=== PATIENT | male | born 1960 | race Caucasian/White ===

== ENCOUNTER 2016-07-15 19:02 | Inpatient (IN) | payer OTHER ==
[~2016-07-15] VITALS: Ht 185.4 cm; Wt 107.5 kg
[2016-07-15 19:42] LABS: ABSOLUTE BASOPHIL COUNT 0 /CUMM (0.0-0.2); ABSOLUTE EOSINOPHIL COUNT 0 /CUMM (0.0-0.7); ABSOLUTE GRANULOCYTE CT 6.3 /CUMM (1.4-6.5); ABSOLUTE LYMPH COUNT 1.4 /CUMM (1.2-3.4); ABSOLUTE MONOCYTE COUNT 0.9 /CUMM (0.10-0.60); BASOPHIL % 0.3 % (0.0-2.0); EOSINOPHIL % 0.6 % (0-5); GRANULOCYTE % 72.5 % (42.2-75.2); HEMATOCRIT 48.2 % (42-52); MEAN CORPUSCULAR HGB 30.5 PG (27.0-31.0); MEAN CORPUSCULAR HGB CONC 33.9 G/DL (33.0-37.0); MEAN CORPUSCULAR VOLUME 89.8 FL (80.0-94.0); MEAN PLATELET VOLUME 7.1 FL (7.4-10.4); PLATELET COUNT 228 /CUMM (130-400); RBC DISTRIBUTION WIDTH 13.4 % (11.5-14.5); RED BLOOD CELL CT 5.37 /CUMM (4.70-6.10); WHITE BLOOD CELL COUNT 8.7 /CUMM (4.8-10.8)
--- NOTE | 2016-07-15 20:48 | RADIOLOGY REPORT ---
EXAMINATION: XR CHEST CLINICAL INFORMATION: 56-year-old male patient with fever and bodyaches. Right shoulder pain. COMPARISON: None TECHNIQUE: PA and lateral erect views of the chest. FINDINGS: Lung volumes are somewhat diminished. Nevertheless, there is a peripheral area of consolidation in the right lower lobe consistent with a diagnosis of right lower lobe pneumonia. Platelike atelectasis is seen in the lower left hemithorax. Heart is normal in size and the thoracic aorta uncoiled. IMPRESSION: Right lower lobe pneumonia.
--- NOTE | 2016-07-15 20:57 | ED CARDIAC/CP/PALPITATIONS ---
History of Present Illness General Chief Complaint: Abdominal Pain/Flank Pain Stated Complaint: ABD PAIN Source: patient Exam Limitations: no limitations Vital Signs & Intake/Output Vital Signs & Intake/Output Vital Signs Date Time Temp Pulse Resp B/P Pulse O2 O2 Flow FiO2 Ox Delivery Rate 07/15 2158 100.7 110 18 134/79 95 Room Air 07/15 1918 101.2 99 22 168/91 97 Room Air Allergies Coded Allergies: No Known Allergies (07/15/16) Triage Note: PER PT PAIN TO RT RIB AREA RADIATES TO RT SHOULDER SINCE LAST NIGHT ALSO CHILLS, HURTS TO BREATHE IN TEMP IN TRIAGE 101.2 Triage Nurses Notes Reviewed? yes Onset: Abrupt Duration: day(s): (few), constant, continues in ED Timing: recent history Radiation: back Activities at Onset: none HPI: 56-year-old male comes into emergency room for further evaluation of severe right sided rib pain. Denies any cough. Low-grade fever starting today. Denies any vomiting. Pain is worse with any type of deep breath and worse with lying flat. Denies any history or prior symptoms of this. Denies any other associated symptoms. (CHATO SAUL) Past History Travel History Traveled to [place] past 21 day No Medical History Any Pertinent Medical History? see below for history Neurological: NONE EENT: NONE Cardiovascular: NONE Respiratory: NONE Gastrointestinal: NONE Hepatic: NONE Renal: NONE Musculoskeletal: NONE Psychiatric: NONE Endocrine: NONE Surgical History Surgical History: non-contributory Psychosocial History What is your primary language Greek Tobacco Use: Never used Family History Hx Contributory? No (CHATO SAUL) Review of Systems Review of Systems Constitutional: Reports: see HPI. EENTM: Reports: no symptoms. Respiratory: Reports: see HPI. Cardiovascular: Reports: see HPI. GI: Reports: no symptoms. Genitourinary: Reports: no symptoms. Musculoskeletal: Reports: no symptoms. Skin: Reports: no symptoms. Neurological/Psychological: Reports: no symptoms. Hematologic/Endocrine: Reports: no symptoms. Immunologic/Allergic: Reports: no symptoms. All Other Systems: Reviewed and Negative (CHATO SAUL) Physical Exam Physical Exam General Appearance: well developed/nourished, no apparent distress, alert, awake Head: atraumatic, normal appearance Eyes: Bilateral: normal appearance, EOMI. Ears, Nose, Throat: normal pharynx, normal ENT inspection Neck: normal inspection Respiratory: normal breath sounds, no respiratory distress Cardiovascular: regular rate/rhythm Gastrointestinal: soft Back: normal inspection Extremities: normal inspection, normal range of motion Neurologic/Psych: awake, alert, oriented x 3, normal gait Skin: intact, normal color Core Measures ACS in differential dx? No Severe Sepsis Present: No Septic Shock Present: No (CHATO SAUL) Progress Differential Diagnosis: AMI, aortic dissection, cholecystitis, myocarditis, pancreatitis, pericarditis, pneumonia, pneumothorax, respiratory failure, rib fracture, unstable angina, pulmonary infarct Plan of Care: Orders Procedure Date/time Status Admit to inpatient 07/151 Active PARTIAL THROMBOPLASTIN TIME 07/15 2218 Complete Patient Data 07/15 2217 Active Add-on Test (ER Only) 07/15 2055 Active EKG 07/15 2055 Active RAPID VIRAL INFLUENZA A 07/15 2026 Complete TROPONIN LEVEL 07/15 1924 Complete BLOOD CULTURE 07/15 1920 Active LIPASE 07/15 1920 Complete LACTIC ACID 07/15 1920 Complete COMPREHENSIVE METABOLIC PANEL 07/15 1920 Complete CBC WITHOUT DIFFERENTIAL 07/15 1920 Complete AMYLASE 07/15 1920 Complete Laboratory Tests 07/15/16 2236: APTT 30 07/15/16 2221: Lactic Acid Cancelled 07/15/161924: Anion Gap 9, Estimated GFR > 60, BUN/Creatinine Ratio 14.0, Glucose 104 H, Lactic Acid 1.3, Calcium 9.1, Total Bilirubin 0.8, AST 25, ALT 39, Alkaline Phosphatase 63, Troponin I < 0.01, Total Protein 7.4, Albumin 4.2, Globulin 3.2, Albumin/Globulin Ratio 1.3, Amylase 155 H, Lipase 80, CBC w Diff NO MAN DIFF REQ, RBC 5.37, MCV 89.8, MCH 30.5, RDW 13.4, MPV 7.1 L, Gran % 72.5, Lymphocytes % 16.0 L, Monocytes % 10.6 H, Eosinophils % 0.6, Basophils % 0.3, Absolute Granulocytes 6.3, Absolute Lymphocytes 1.4, Absolute Monocytes 0.9 H, Absolute Eosinophils 0, Absolute Basophils 0, PUBS MCHC 33.9 Microbiology 07/15 2150 NASOPHARYN: Influenza Virus A & B Rapid Smear - COMP 07/15 1924 BLOOD: Blood Culture - RECD Diagnostic Imaging: Viewed by Me: Radiology Read, CT Scan. Discussed w/RAD: Radiology Read, CT Scan. Radiology Impression: SERVICE DATE: 07/15/16 EXAM TYPE: RAD - XRY-CHEST XRAY, PA AND LATERAL EXAMINATION: XR CHEST CLINICAL INFORMATION: 56-year-old male patient with fever and bodyaches. Right shoulder pain. COMPARISON: None TECHNIQUE: PA and lateral erect views of the chest. FINDINGS: Lung volumes are somewhat diminished. Nevertheless, there is a peripheral area of consolidation in the right lower lobe consistent with a diagnosis of right lower lobe pneumonia. Platelike atelectasis is seen in the lower left hemithorax. Heart is normal in size and the thoracic aorta uncoiled. IMPRESSION: Right lower lobe pneumonia. DICTATED BY: PIETER WHITMAN MD DATE/TIME DICTATED:07/15/16 , EXAM TYPE: CAT - CTA CHEST-PULMONARY EMBOLISM EXAMINATION: CT ANGIOGRAM OF THE CHEST WITH AND WITHOUT CONTRAST (CT PULMONARY ANGIOGRAM FOR PE) CLINICAL INFORMATION: Reason for Study:
Presumptive Dx: SEVERE RIGHT SIDED RIB PAIN, R /O PULM EMB/INFARCT
Signs Symptoms: PAIN OUT OF PROPORTION ON EXAM
COMPARISON: None TECHNIQUE: Prior to contrast administration, noncontrast localization images were obtained. Subsequently, multidetector volumetric imaging was performed from the thoracic inlet to below the diaphragms following the administration of 101 mL Optiray 350 intravenous contrast. No contrast reaction reported Sagittal, coronal, and MIP oblique sagittal reformatted images were obtained on the CT workstation, uploaded to PACS, and reviewed. Total exam dose-length product 610 mGy-cm FINDINGS: QUALITY OF STUDY/CONTRAST BOLUS: Unsatisfactory. PULMONARY ARTERIES: The timing bolus was somehow misconstrued and the study is performed in the levo phase of injection. Nevertheless, the main pulmonary artery and left and right branches do not have intraluminal thrombus formation. However, there is clot formation in all the segmental branches of both lungs. The clot burden therefore is high. THORACIC AORTA: No aneurysm or dissection. LUNG: The focal consolidation on the chest x-ray done this evening would be consistent with a Cespedes's hump or pulmonary infarction. On the present study there is parenchymal opacity in the right lower lobe that is either atelectasis or an infarction of the lung. The patient's pain is localized specifically to this area. There is some dependent atelectasis in the left lower lobe. PLEURA: No pleural effusion or pneumothorax. MEDIASTINUM: Normal heart size. No pericardial effusion. No hilar or mediastinal lymphadenopathy. No evidence of septal bowing or right heart strain. CHEST WALL /AXILLA: No axillary or internal mammary lymphadenopathy. OSSEOUS STRUCTURES: No acute or suspicious osseous abnormality. UPPER ABDOMEN: Unremarkable. No reflux of contrast into the hepatic veins to suggest elevated right heart pressures. IMPRESSION: 1. Multiple segmental pulmonary emboli, all segments of both lungs. High clot burden. 2. Developing pulmonary infarct posterior peripheral right lower lobe versus atelectasis. VTE: Positive. This critical result was discussed with Dr. Chato Bain at 10:00 PM on July 15 and it was ascertained that the content and urgency of the report was understood at the time of direct communication. DICTATED BY: PIETRE WHITMAN MD Initial ED EKG: normal intervals, normal p-waves, normal sinus rhythm, rate (103 ), S1 Q3 T3 (CHATO SAUL) Departure Departure Disposition: STILL A PATIENT Condition: Stable Clinical Impression Primary Impression: Multiple pulmonary emboli Secondary Impressions: Pulmonary infarct Referrals: EDWIN BALLARD MD (PCP/Family) Departure Forms: Customer Survey General Discharge Information Admission Note Spoke With: NADINE STROUD MD Documentation of Exam: Documentation of any treatments & extenuating circumstances including Concerns Regarding Discharge (functional status, medication knowledge or non-compliance, living conditions, etc.) that warrant an admission rather than observation: Patient will require IV heparin. Critical care. High risk. Patient would do poorly as an outpatient. Pulmonary consultation. (CHATO SAUL) PA/PREVENTIVE MAINTENANCE COORDINATOR Co-Sign Statement Statement: ED Attending supervision documentation- x I saw and evaluated the patient. I have also reviewed all the pertinent lab results and diagnostic results. I agree with the findings and the plan of care as documented in the PA's/PREVENTIVE MAINTENANCE COORDINATOR's documentation. [] I have reviewed the ED Record and agree with the PA's/PREVENTIVE MAINTENANCE COORDINATOR's documentation. [] Additions or exceptions (if any) to the PAs/PREVENTIVE MAINTENANCE COORDINATOR's note and plan are summarized below: [] (JJ RODGERS,SUGAR) Critical Care Note Critical Care Note Critical Care Time: 30-74 min (45) (EMMANUEL OLIVARES,CHATO)
--- NOTE | 2016-07-15 22:19 | CT SCAN REPORT ---
EXAMINATION: CT ANGIOGRAM OF THE CHEST WITH AND WITHOUT CONTRAST (CT PULMONARY ANGIOGRAM FOR PE) CLINICAL INFORMATION: Reason for Study:
Presumptive Dx: SEVERE RIGHT SIDED RIB PAIN, R/O PULM EMB/INFARCT
Signs Symptoms: PAIN OUT OF PROPORTION ON EXAM
COMPARISON: None TECHNIQUE: Prior to contrast administration, noncontrast localization images were obtained. Subsequently, multidetector volumetric imaging was performed from the thoracic inlet to below the diaphragms following the administration of 101 mL Optiray 350 intravenous contrast. No contrast reaction reported Sagittal, coronal, and MIP oblique sagittal reformatted images were obtained on the CT workstation, uploaded to PACS, and reviewed. Total exam dose-length product 610 mGy-cm FINDINGS: QUALITY OF STUDY/CONTRAST BOLUS: Unsatisfactory. PULMONARY ARTERIES: The timing bolus was somehow misconstrued and the study is performed in the levo phase of injection. Nevertheless, the main pulmonary artery and left and right branches do not have intraluminal thrombus formation. However, there is clot formation in all the segmental branches of both lungs. The clot burden therefore is high. THORACIC AORTA: No aneurysm or dissection. LUNG: The focal consolidation on the chest x-ray done this evening would be consistent with a Cespedes's hump or pulmonary infarction. On the present study there is parenchymal opacity in the right lower lobe that is either atelectasis or an infarction of the lung. The patient's pain is localized specifically to this area. There is some dependent atelectasis in the left lower lobe. PLEURA: No pleural effusion or pneumothorax. MEDIASTINUM: Normal heart size. No pericardial effusion. No hilar or mediastinal lymphadenopathy. No evidence of septal bowing or right heart strain. CHEST WALL/AXILLA: No axillary or internal mammary lymphadenopathy. OSSEOUS STRUCTURES: No acute or suspicious osseous abnormality. UPPER ABDOMEN: Unremarkable. No reflux of contrast into the hepatic veins to suggest elevated right heart pressures. IMPRESSION: 1. Multiple segmental pulmonary emboli, all segments of both lungs. High clot burden. 2. Developing pulmonary infarct posterior peripheral right lower lobe versus atelectasis. VTE: Positive. This critical result was discussed with Dr. Shaun Bain at 10:00 PM on July 15 and it was ascertained that the content and urgency of the report was understood at the time of direct communication.
[2016-07-15 22:50] LABS: PTT 30 SEC (25-37)
[2016-07-15] MEDS ORDERED: ASPIRIN81 M4 PO (23:39)
--- NOTE | 2016-07-15 23:40 | History & Physical ---
RIC LOPEZ 07/15/16 2333: General Information and HPI MD Statement: I have seen and personally examined ZELDA CERVANTES and documented this H&P. The patient is a 56 year old M who presented with a patient stated chief complaint of [chest pain]. Source of Information: patient Exam Limitations: no limitations History of Present Illness: This is 56 year old male with no known past medical history. Presented to the emergency department with a chief complaint of chest pain associated with difficulty breathing. Patient stated that his chest pain started last night, suddenly, on the right side, below the rib cage, sharp in nature, increased with deep breathing and movement, radiating to his right shoulder, slightly improved with sitting up, associated with chills, nausea and difficulty breathing. Patient reports decreased appetite. Patient deny any lower extremity swelling, recent long distance travel. Patient reports headache and palpitation that subside. Patient reports weak stream. 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 Patient deny any cough, hemoptysis, hematemesis, abdominal pain, vomiting, diarrhea, change in vision or hearing, dizziness, lightheaded, sweating hematuria, dysuria,. Patient stated that he went recently for colonoscopy that was within normal. In the emergency department: Chest-CAT showed multiple segmental pulmonary embolism with a hyperdense with possible right lower lobe infarct versus atelectasis. Patient has a fever of 101.2, amylase of 155. He was started on IV heparin drip. Allergies/Medications Allergies: Coded Allergies: No Known Allergies (07/15/16) Home Med list Aspirin (Aspirin*) 81 MG TAB.CHEW 1 TAB PO EVER OTHER DAY HEART (Reported) Past History Travel History Traveled to [place] past 21 day No Medical History Neurological: NONE Cardiovascular: NONE Respiratory: NONE Gastrointestinal: NONE Hepatic: NONE Renal: NONE Musculoskeletal: disk herniation Psychiatric: NONE Endocrine: NONE Surgical History Surgical History: VARICOSE VEIN INJECTION Past Family/Social History Family History Relations & Conditions if any BROTHER (DM, HTN, CLOT). FATHER (mULTIPLE HEART ATTACK, FIRST ONE AROUND 40-YEAR-OLD). . MOTHER (cOLON CANCER, BREAST CANCER). . Psychosocial History Smoking Status: Never Smoked ETOH Use: denies use Illicit Drug Use: denies illicit drug use Functional Ability ADLs Independent: dressing, eating, toileting, bathing. Ambulation: independent IADLs Independent: shopping, housework, finances, food prep, telephone, transportation , medication admin. Employment History Employment Employed Review of Systems Review of Systems Constitutional: Reports: see HPI. EENTM: Reports: see HPI. Cardiovascular: Reports: see HPI. Respiratory: Reports: see HPI. GI: Reports: see HPI. Genitourinary: Reports: see HPI. Exam & Diagnostic Data Last 24 Hrs of Vital Signs/I&O Vital Signs Date Time Temp Pulse Resp B/P Pulse O2 O2 Flow FiO2 Ox Delivery Rate 07/15 2158 100.7 110 18 134/79 95 Room Air 07/15 1918 101.2 99 22 168/91 97 Room Air Physical Exam General Appearance Alert, Oriented X3, Cooperative, Mild Distress HEENT PERRLA, EOMI Neck Supple Cardiovascular Normal S1, Normal S2, TACHYCARDIA Lungs Normal Air Movement, DECREASE AIR ENTRY ON THE RIGHT SIDE Abdomen Normal Bowel Sounds, Soft, No Tenderness Extremities No Cyanosis, Normal Pulses, TRACE BILATERAL EDEMA Last 24 Hrs of Labs/Alejo: Laboratory Tests 07/15/162235: PT Pending, INR Pending, APTT 30 07/15/16 222: Lactic Acid Cancelled 07/15/161924: Anion Gap 9, Estimated GFR > 60, BUN/Creatinine Ratio 14.0, Glucose 104 H, Lactic Acid 1.3, Calcium 9.1, Phosphorus Pending, Magnesium Pending, Total Bilirubin 0.8, AST 25, ALT 39, Alkaline Phosphatase 63, Troponin I < 0.01, Total Protein 7.4, Albumin 4.2, Globulin 3.2, Albumin/Globulin Ratio 1.3, Amylase 155 H, Lipase 80, CBC w Diff NO MAN DIFF REQ, RBC 5.37, MCV 89.8, MCH 30.5, RDW 13.4 , MPV 7.1 L, Gran % 72.5, Lymphocytes % 16.0 L, Monocytes % 10.6 H, Eosinophils % 0.6, Basophils % 0.3, Absolute Granulocytes 6.3, Absolute Lymphocytes 1.4, Absolute Monocytes 0.9 H, Absolute Eosinophils 0, Absolute Basophils 0, PUBS MCHC 33.9 Microbiology 07/15 2150 NASOPHARYN: Influenza Virus A & B Rapid Smear - COMP 07/15 1924 BLOOD: Blood Culture - RECD Diagnostic Data EKG Results Tachycardia, Q waves in lead 3 with T-wave inversion. Other Results EXAMINATION: CT ANGIOGRAM OF THE CHEST WITH AND WITHOUT CONTRAST (CT PULMONARY ANGIOGRAM FOR PE) CLINICAL INFORMATION: Reason for Study:
Presumptive Dx: SEVERE RIGHT SIDED RIB PAIN, R/O PULM EMB/INFARCT
Signs Symptoms: PAIN OUT OF PROPORTION ON EXAM
COMPARISON: None TECHNIQUE: Prior to contrast administration, noncontrast localization images were obtained. Subsequently, multidetector volumetric imaging was performed from the thoracic inlet to below the diaphragms following the administration of 101 mL Optiray 350 intravenous contrast. No contrast reaction reported Sagittal, coronal, and MIP oblique sagittal reformatted images were obtained on the CT workstation, uploaded to PACS, and reviewed. Total exam dose-length product 610 mGy-cm FINDINGS: QUALITY OF STUDY/CONTRAST BOLUS: Unsatisfactory. PULMONARY ARTERIES: The timing bolus was somehow misconstrued and the study is performed in the levo phase of injection. Nevertheless, the main pulmonary artery and left and right branches do not have intraluminal thrombus formation. However, there is clot formation in all the segmental branches of both lungs. The clot burden therefore is high. THORACIC AORTA: No aneurysm or dissection. LUNG: The focal consolidation on the chest x-ray done this evening would be consistent with a Cespedes's hump or pulmonary infarction. On the present study there is parenchymal opacity in the right lower lobe that is either atelectasis or an infarction of the lung. The patient's pain is localized specifically to this area. There is some dependent atelectasis in the left lower lobe. PLEURA: No pleural effusion or pneumothorax. MEDIASTINUM: Normal heart size. No pericardial effusion. No hilar or mediastinal lymphadenopathy. No evidence of septal bowing or right heart strain. CHEST WALL/AXILLA: No axillary or internal mammary lymphadenopathy. OSSEOUS STRUCTURES: No acute or suspicious osseous abnormality. UPPER ABDOMEN: Unremarkable. No reflux of contrast into the hepatic veins to suggest elevated right heart pressures. IMPRESSION: 1. Multiple segmental pulmonary emboli, all segments of both lungs. High clot burden. 2. Developing pulmonary infarct posterior peripheral right lower lobe versus atelectasis. VTE: Positive. Assessment/Plan Assessment: This is 56 year old male with no known past medical history. Presented to the emergency department with a chief complaint of chest pain associated with difficulty breathing. Problem list: -Provoked versus unprovoked pulmonary embolism with high burden -Possible right lower lobe infarct versus atelectasis. -Tachycardia, fever secondary to the pulmonary embolism Plan: -Admit patient to the ICU -Vitals every shift, strict LIS's -Keep oxygen saturation more than 92%, TRC -Serial troponin and EKG to R/O ACS. -Continue heparin drip, D5 half-normal saline at 75 mL per hour -Check PT/PTT, magnesium, phosphorus -Echocardiogram to assess cardiac function. -Hematology oncology consultation in A.M. -Clear liquid diet. -Patient will need extensive workup for hypercoagulability as an outpatient. -If the patient become unstable we'll consider thrombolytic. -Pain pathway -DVT prophylaxis: Heparin drip -Patient agree for central line if needed. -Full code As Ranked By This Provider Problem List: 1. Multiple pulmonary emboli 2. Pulmonary infarct Core Measures/Miscellaneous Acute Coronary Syndrome ACS Diagnosis: No Cerebrovascular Accident CVA/TIA Diagnosis: No Congestive Heart Failure CHF Diagnosis: No Venous Thromboembolism VTE Risk Factors: Acute medical illness, Age > 40, Obesity VTE Prophylaxis Ordered Inpt: Mech & Pharm No Mech VTE prophylaxis d/t: No contraindications No VTE Pharm Prophylaxis d/t: No contraindications VTE Diagnosis: Yes VTE Type: Pulmonary Embolism VTE Confirmed by (Test): CT CHEST ANGIOGRAM Severe Sepsis Severe Sepsis Present: No Septic Shock Septic Shock Present: No Miscellaneous Documentation Attending Case Discussed With: NADINE STROUD MD Primary Care Physician: EDWIN BALLARD MD Patient sees these Specialists Hematology Switch Operators Supervisor Level of Patient Care: Critical Care (CRI) NADINE STROUD 07/16/16 0311: Attending MD Review Statement Attending Statement Attending MD Statement: examined this patient, discuss w/resident/PA/SAFETY RISK LEAD, agreed w/resident/PA/SAFETY RISK LEAD, reviewed EMR data (avail), reviewed images, amended to note Attending Assessment/Plan: CC: Right-sided chest pain PMH: Varicose vein with recent procedure He came to ER with a chief complaint of chest pain and difficulty breathing. Chest pain started last night, sudden in onset, sharp, on the right side, worse with breathing, going to his right shoulder, associated with chills, nausea. He denies any lower extremity swelling, recent long distance travel, weight loss, night sweats, cough, hemoptysis, hematemesis, abdominal pain, vomiting, LOC, dizziness. 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 Vitals: T max 101.2, tachycardic, mildly tachypnea, blood pressure 134/79, saturating 95% on room air. On examination moderately built, a O 3, anxious, no apparent distress, neck supple, no JVD, mucosa moist CVS: S1-S2, RRR. RS: Limited inspiratory effort secondary to pain, no adventitious sounds. Abdomen: Obese, nontender, bowel sounds present. No focal neurological deficits. Left lower extremity is larger in dimension as compared to right lower extremity, trace pitting edema, no obvious skin rashes no calf tenderness. Labs: CBC, BMP, LFT unremarkable, lactate 1.3 EKG: Q wave in II and III CXR: Right lower lobe pneumonia CTA chest: Multiple segmental pulmonary emboli, all segments of both lungs. High clot burden. Developing pulmonary infarct posterior peripheral right lower lobe versus atelectasis. A and P #1 bilateral pulmonary embolism: with high clot burden and developing right pulmonary infarct bilateral. Patient hemodynamically stable but has Q waves in lead II and III, suspect right heart strain as well, overnight monitoring in ICU for hemodynamic stability, continue IV heparin, check troponin, serial EKG. 2-D echo in a.m. for right heart strain. 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 Discussed risk and benefits of anticoagulation and told him about extensive clot burden may result in hemodynamic instability and also about oral anticoagulation but did not reach any conclusion so far. Pulm/ critical care consult in am. # 2 fever spike secondary to PE #3 adequate pain control
[2016-07-16 00:13] LABS: PT 12.7 SEC (9.4-12.5)
[2016-07-16 01:59] VITALS: BP 133/79
--- NOTE | 2016-07-16 03:14 | Admission Certification ---
Admission Certification Certification Statement - As attending physician, I certify that at the time of - admission, based on clinical presentation, severity of - symptoms, need for further diagnostic testing and - therapeutic interventions, and risk of adverse outcomes - without in-hospital treatment, in my clinical assessment, - this patient requires an acute hospital stay for a minimum - of two nights or longer. I have also considered psychsocial - factors such as support system, advanced age, financial - issues, cognitive issues, and failed out-patient treatments, - past re-admission history, safety of patient, and lack of - compliance as applicable. Specific rationale supporting this admission is: pulmonary embolism
[2016-07-16 05:28] LABS: ABSOLUTE BASOPHIL COUNT 0 /CUMM (0.0-0.2); ABSOLUTE EOSINOPHIL COUNT 0 /CUMM (0.0-0.7); ABSOLUTE GRANULOCYTE CT 8.1 /CUMM (1.4-6.5); ABSOLUTE LYMPH COUNT 1.5 /CUMM (1.2-3.4); ABSOLUTE MONOCYTE COUNT 1.3 /CUMM (0.10-0.60); BASOPHIL % 0.3 % (0.0-2.0); EOSINOPHIL % 0.1 % (0-5); GRANULOCYTE % 73.8 % (42.2-75.2); HEMATOCRIT 44.3 % (42-52); MEAN CORPUSCULAR HGB 30.8 PG (27.0-31.0); MEAN CORPUSCULAR HGB CONC 34.4 G/DL (33.0-37.0); MEAN CORPUSCULAR VOLUME 89.6 FL (80.0-94.0); MEAN PLATELET VOLUME 7.6 FL (7.4-10.4); PLATELET COUNT 205 /CUMM (130-400); RBC DISTRIBUTION WIDTH 13.4 % (11.5-14.5); RED BLOOD CELL CT 4.94 /CUMM (4.70-6.10); WHITE BLOOD CELL COUNT 10.9 /CUMM (4.8-10.8)
[2016-07-16 05:29] LABS: PTT 53 SEC (25-37)
--- NOTE | 2016-07-16 07:17 | Cons- CRCU ---
ALEX RODGERS,[facility] [place] 07/16/16 0717: General Information and HPI Consulting Request Date of Consult: 07/16/16 Requested By: Mateusz Gandhi MD Reason for Consult: Multiple pulmonary emboli Source of Information: patient, old records Exam Limitations: no limitations History of Present Illness: 56 y/o M with PMHx of varicose veins who presents with sudden onset of progressively worsening right-sided chest pain x 2 days. Pain is associated with palpitations and shortness of breath. 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 He denies leg swelling, recent immobilization or long distance travel. Of note he had varicose vein surgery in May 2016, about one month prior to current presentation. He has a family history of thrombosis in his brother. Last night patient presented to the ED with the chest pain. On initial presentation, he was febrile to 101.2, tachycardic and tachypneic. His oxygen saturation was >95% on room air. On exam, his left leg was noted to be larger compared to his right leg. CBC, BMP and LFTs were unremarkable. EKG showed Q waves in leads II and III. CTA Chest was performed due to concern for PE and revealed multiple segmental pulmonary emboli involving bilateral lungs with possible pulmonary infarct. He was started on heparin IV drip and admitted to the ICU for close hemodynamic monitoring. Allergies/Medications Allergies: Coded Allergies: No Known Allergies (07/15/16) Home Med List: Aspirin (Aspirin*) 81 MG TAB.CHEW 1 TAB PO EVER OTHER DAY HEART (Reported) Current Medications: Current Medications Sig/Julianna Start time Last Medication Dose Route Stop Time Status Admin Acetaminophen 650 MG Q6P PRN 07/15 2330 AC PO Dextrose/Sodium 1,000 ML .Q10H 07/15 2330 AC 07/16 Chloride IV 0006 Heparin Sodium 0 .STK-MED ONE 07/15 2242 DC (Porcine) .ROUTE Heparin Sodium 5,000 UNIT ONCE ONE 07/15 2214 DC 07/15 (Porcine) IV 07/15 2215 224 Heparin Sodium 25,000 UNIT Q24H 07/15 2214 AC 07/15 (Porcine) IV 224 Sodium Chloride 500 ML Hydromorphone HCl 2 MG .STK-MED ONE 07/16 0111 DC IM 07/16 0112 Hydromorphone HCl 0.4 MG Q4P PRN 07/15 2330 AC 07/16 IV 0519 Hydromorphone HCl 0 .STK-MED ONE 07/15 2117 DC .ROUTE Hydromorphone HCl 1 MG ONCE ONE 07/15 2100 DC 07/15 IV 07/15 2101 2121 Magnesium Oxide 400 MG ONE ONE 07/16 0730 DC 07/16 PO 07/16 0731 0815 Oxycodone/ 2 TAB Q6P PRN 07/15 2330 AC Acetaminophen PO Potassium Chloride 10 MEQ ONCE ONE 07/16 0730 DC 07/16 PO 07/16 0731 0816 Review of Systems Review of Systems Constitutional: Reports: fever. Denies: unexplained weight loss. EENTM: Reports: no symptoms. Cardiovascular: Reports: chest pain. Respiratory: Denies: cough, hemoptysis, short of breath. GI: Denies: abdominal pain, diarrhea, vomiting. Genitourinary: Reports: no symptoms. Musculoskeletal: Reports: no symptoms. Skin: Reports: no symptoms. Neurological/Psychological: Reports: no symptoms. Hematologic/Endocrine: Reports: no symptoms. Immunologic/Allergic: Reports: no symptoms. All Other Systems: Reviewed and Negative Past History Travel History Traveled to [place] past 21 day No Medical History Neurological: NONE Cardiovascular: varicose veins Respiratory: NONE Gastrointestinal: NONE Hepatic: NONE Renal: NONE Musculoskeletal: disk herniation Psychiatric: NONE Endocrine: NONE Surgical History Surgical History: VARICOSE VEIN INJECTION Family History Relations & Conditions If Any: BROTHER (DM, HTN, CLOT). FATHER (mULTIPLE HEART ATTACK, FIRST ONE AROUND 40-YEAR-OLD). . MOTHER (cOLON CANCER, BREAST CANCER). . Psychosocial History Smoking Status: Never Smoked ETOH Use: denies use Illicit Drug Use: denies illicit drug use, remote history of drug abuse 30 years ago Functional Ability ADLs Independent: dressing, eating, toileting, bathing. Ambulation: independent IADLs Independent: shopping, housework, finances, food prep, telephone, transportation , medication admin. 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 Exam & Diagnostic Data Last 24 Hrs of Vital Signs/I&O Vital Signs Date Time Temp Pulse Resp B/P Pulse O2 O2 Flow FiO2 Ox Delivery Rate 07/16 0400 94 Room Air 07/16 0245 94 Room Air 07/16 0202 92 Room Air 07/16 0159 98.8 111 24 133/79 92 Room Air 07/16 0055 99.2 100 16 132/70 98 Room Air 07/15 2356 99.4 111 20 131/67 93 Room Air 07/15 2159 100.7 110 18 134/79 95 Room Air 07/15 1919 101.2 99 22 168/91 97 Room Air Intake & Output 07/16 1600 07/16 0800 07/16 0000 Intake Total 1133 Output Total 500 Balance 633 Intake, IV 833 Intake, Oral 300 Output, Urine 500 Patient 110.677 kg Weight Physical Exam General Appearance: well developed/nourished, no apparent distress, alert, awake , comfortable Head: atraumatic, normal appearance Ears, Nose, Throat: moist mucus membranes Neck: supple Respiratory: no respiratory distress, lungs clear Cardiovascular: regular rate/rhythm, normal S1 and S2 Gastrointestinal: soft, non-tender, positive bowel sounds Extremities: no clubbing or cyanosis, left lower extremity larger compared to the right Neurologic/Psych: no gross focal deficits noted Skin: intact, warm/dry Last 48 Hrs of Labs/Alejo: Laboratory Tests 07/16/16 0810: Troponin I Pending 07/16/16 0450: Anion Gap 9, Estimated GFR > 60, Glucose 126 H, Calcium 8.4, Phosphorus 3.4, Magnesium 1.8, Total Bilirubin 1.3, AST 19, ALT 37, Albumin 3.5, APTT 53 H, CBC w Diff NO MAN DIFF REQ, RBC 4.94, MCV 89.6, MCH 30.8, RDW 13.4, MPV 7.6, Gran % 73.8, Lymphocytes % 14.1 L, Monocytes % 11.7 H, Eosinophils % 0.1, Basophils % 0.3, Absolute Granulocytes 8.1 H, Absolute Lymphocytes 1.5, Absolute Monocytes 1.3 H, Absolute Eosinophils 0, Absolute Basophils 0, PUBS MCHC 34.4 07/16/16 0130: Troponin I < 0.01 07/15/16 2236: PT 12.7 H, INR 1.21 H, APTT 30 07/15/16 2221: Lactic Acid Cancelled 07/15/16 1925: Anion Gap 9, Estimated GFR > 60, BUN/Creatinine Ratio 14.0, Glucose 104 H, Lactic Acid 1.3, Calcium 9.1, Phosphorus 3.6, Magnesium 1.8, Total Bilirubin 0.8 , AST 25, ALT 39, Alkaline Phosphatase 63, Troponin I < 0.01, Total Protein 7.4, Albumin 4.2, Globulin 3.2, Albumin/Globulin Ratio 1.3, Amylase 155 H, Lipase 80 , CBC w Diff NO MAN DIFF REQ, RBC 5.37, MCV 89.8, MCH 30.5, RDW 13.4, MPV 7.1 L , Gran % 72.5, Lymphocytes % 16.0 L, Monocytes % 10.6 H, Eosinophils % 0.6, Basophils % 0.3, Absolute Granulocytes 6.3, Absolute Lymphocytes 1.4, Absolute Monocytes 0.9 H, Absolute Eosinophils 0, Absolute Basophils 0, PUBS MCHC 33.9 Microbiology 07/15 2150 NASOPHARYN: Influenza Virus A & B Rapid Smear - COMP Diagnostic Data CXR Results Right lower lobe pneumonia. Other Results CTA CHEST PE: 1. Multiple segmental pulmonary emboli, all segments of both lungs. High clot burden. 2. Developing pulmonary infarct posterior peripheral right lower lobe versus atelectasis. VTE: Positive. Assessment/Plan Impression/Plan: Respiratory: Respiratory status stable despite extensive PE. Satting well on room air without shortness of breath. * Provide supplemental oxygen as needed to keep SpO2 > 92%. Infectious Diseases: Presented with fever with Tmax of 101.2, likely secondary to PE, which has resolved. WBC count normal on admission but has increased slightly to 10.9, most likely reactive in the absence of signs or symptoms of infection. BCx negative. Rapid flu test negative. Cardiovascular: #Possible right heart strain: Concerning in the setting of his extensive clot burden. EKG on admission with Q waves in leads II and III. Troponins x3 0.01. Serial EKGs with no other interval changes. * ECHO ordered. * If there is no evidence of right heart strain, downgrade to telemetry. Hematology: #Bilateral segmental PE: CT Chest with bilateral segmental PE with likely developing pulmonary infarct. Unclear etiology but could be secondary to his recent varicose vein procedure. Left leg larger than right on exam concerning for DVT. Respiratory status stable. Satting well on room air without shortness of breath. * Hematology following. Appreciate their recs. * Doppler US of BLE ordered to evaluate for DVT. * Continue IV heparin. * Per hematology recs, will check protein C and S prior to starting warfarin. * Transition to oral anti-coagulation once patient is stable. * Hypercoagulable work-up needs to be performed as outpatient given family history of thrombosis. Metabolic: No issues. Alimentary: Clear liquid diet Neurologic: AAO x 3. Skin: No issues. DVT PPx: Heparin IV CODE: FULL Problem List: 1. Bilateral pulmonary embolism Consult Acknowledgment - Thank you for your consult request. DANIAL KINNEY MD 07/16/16 1251: Assessment/Plan Other Findings/Comments: Danial Miller M.D. have examined this patient, reviewed available EMR data, personally reviewed images, discussed with resident/PA/STRAIGHT PIN MAKING MACHINE OPERATOR, discussed management plan with housestaff and nursing staff, discussed managment plan all of healthcare providers, discussed management plan with patient and/or family, agreed with resident/PA/STRAIGHT PIN MAKING MACHINE OPERATOR. The past history and parts of the chart have been autopopulated. Impression 56-year-old man * Bilateral segmental pulmonary emboli with possible pulmonary infarct * Family history significant for thrombosis (brother) Plan -continue IV heparin -ECHO & Dopplers -protein c & s -given family hx would likely begin coumadin as a/c -if no RV strain, can DG to telemetry TTS 40 min Consult Acknowledgment - Thank you for your consult request.
[2016-07-16 08:00] VITALS: BP 150/80
--- NOTE | 2016-07-16 08:02 | Cons- Hematology ---
General Information and HPI Consulting Request Date of Consult: 07/16/16 Requested By: NADINE STROUD MD Reason for Consult: PE Source of Information: patient Exam Limitations: no limitations History of Present Illness: Mr. Tay is a 56-year-old male with history of varicose veins who presents with right sided chest pain. Pain started 2 days ago and progressed. Pain is pleuritic. He denies any shortness of breath. He does have some palpitation with it. Because of the persistent pain, he went to the ED for evaluation. In the ED, CTA of the chest was done and noted multiple bilateral segmental PE with developing pulmonary infarct in the posterior peripheral right lower lobe versus atelectasis. He was admitted to ICU and started on heparin drip. He states he is pretty active. 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 He states he sits for about 5 minutes. He reports the only surgery he has had was the varicose vein surgery. This was last done in May. He denies any other surgery. He has not been lying down for prolong period of time. He has not taken any trips. He has not started on any medications. He does not use testosterone. He does have a brother with thrombosis. His mother has heart disease. He has had a colonoscopy in October 2015. He does not smoke or drink alcohol. He used to do drugs 30 years ago. Allergies/Medications Allergies: Coded Allergies: No Known Allergies (07/15/16) Home Med List: Aspirin (Aspirin*) 81 MG TAB.CHEW 1 TAB PO EVER OTHER DAY HEART (Reported) Current Medications: Current Medications Sig/Julianna Start time Last Medication Dose Route Stop Time Status Admin Acetaminophen 650 MG Q6P PRN 07/15 233 AC PO Dextrose/Sodium 1,000 ML .Q10H 07/15 2329 AC 07/16 Chloride IV 0006 Heparin Sodium 0 .STK-MED ONE 07/15 2242 DC (Porcine) .ROUTE Heparin Sodium 5,000 UNIT ONCE ONE 07/15 2214 DC 07/15 (Porcine) IV 07/15 Heparin Sodium 25,000 UNIT Q24H 07/15 2214 AC 07/15 (Porcine) IV 224 Sodium Chloride 500 ML Hydromorphone HCl 0.4 MG Q4P PRN 07/15 2329 AC 07/16 IV 0519 Hydromorphone HCl 0 .STK-MED ONE 07/15 2116 DC .ROUTE Hydromorphone HCl 1 MG ONCE ONE 07/15 2100 DC 07/15 IV 07/15 Magnesium Oxide 400 MG ONE ONE 07/16 0730 DC PO 07/16 0731 Oxycodone/ 2 TAB Q6P PRN 07/15 2330 AC Acetaminophen PO Potassium Chloride 10 MEQ ONCE ONE 07/16 0730 DC PO 07/16 0731 Review of Systems Review of Systems Constitutional: Reports: fever. EENTM: Denies: blurred vision, double vision. Cardiovascular: Reports: chest pain (right chest/flank). Respiratory: Reports: see HPI. Denies: cough, hemoptysis, short of breath. GI: Denies: constipation, diarrhea. Genitourinary: Denies: dysuria. Musculoskeletal: Denies: back pain. Skin: Denies: rash. Neurological/Psychological: Denies: anxiety, ataxia. Hematologic/Endocrine: Denies: bruising, bleeding. Immunologic/Allergic: Denies: lymphadenopathy. All Other Systems: Reviewed and Negative Past History Travel History Traveled to [place] past 21 day No Medical History Neurological: NONE Cardiovascular: NONE Respiratory: NONE Gastrointestinal: NONE Hepatic: NONE Renal: NONE Musculoskeletal: disk herniation Psychiatric: NONE Endocrine: NONE Other Medical Hx: Varicose vein Surgical History Surgical History: VARICOSE VEIN INJECTION Family History Relations & Conditions If Any: BROTHER (DM, HTN, CLOT). FATHER (mULTIPLE HEART ATTACK, FIRST ONE AROUND 40-YEAR-OLD). . MOTHER (cOLON CANCER, BREAST CANCER). . Psychosocial History Smoking Status: Never Smoked ETOH Use: denies use Illicit Drug Use: denies illicit drug use Functional Ability ADLs Independent: dressing, eating, toileting, bathing. Ambulation: independent IADLs Independent: shopping, housework, finances, food prep, telephone, transportation , medication admin. Employment History Employment: Employed Exam & Diagnostic Data Vital Signs and I&O Vital Signs Date Time Temp Pulse Resp B/P Pulse O2 O2 Flow FiO2 Ox Delivery Rate 07/16 0400 94 Room Air 07/16 0245 94 Room Air 07/16 0202 92 Room Air 07/16 0159 98.8 111 24 133/79 92 Room Air 07/16 0055 99.2 100 16 132/70 98 Room Air 07/15 2356 99.4 111 20 131/67 93 Room Air 07/15 2159 100.7 110 18 134/79 95 Room Air 07/15 1919 101.2 99 22 168/91 97 Room Air Intake & Output 07/16 1600 07/16 0800 07/16 0000 Intake Total 1133 Output Total 500 Balance 633 Intake, IV 833 Intake, Oral 300 Output, Urine 500 Patient 110.677 kg Weight Physical Exam General Appearance: alert, awake, comfortable Head: atraumatic, normal appearance Eyes: Bilateral: PERRL. Ears, Nose, Throat: normal pharynx, normal ENT inspection Neck: normal inspection Respiratory: normal breath sounds, chest non-tender, no respiratory distress, quiet respiration Cardiovascular: tachycardia Gastrointestinal: normal bowel sounds, soft, non-tender, no organomegaly Extremities: pedal edema (right leg) Neurologic/Psych: awake, alert, oriented x 3 Lymphatic: No adenopathy Last 48 Hours of Lab Results: Laboratory Tests 07/16 07/16 07/15 0450 0130 2236 Chemistry Sodium (137 - 145 mmol/L) 134 L Potassium (3.5 - 5.1 mmol/L) 3.9 Chloride (98 - 107 mmol/L) 101 Carbon Dioxide (22 - 30 mmol/L) 25 Anion Gap (5 - 16) 9 BUN (9 - 20 mg/dL) 12 Creatinine (0.7 - 1.2 mg/dL) 0.9 Estimated GFR (>60 ml/min) > 60 Glucose (65 - 99 mg/dL) 126 H Calcium (8.4 - 10.2 mg/dL) 8.4 Phosphorus (2.5 - 4.5 mg/dL) 3.4 Magnesium (1.6 - 2.3 mg/dL) 1.8 Total Bilirubin (0.2 - 1.3 mg/dL) 1.3 AST (17 - 59 U/L) 19 ALT (21 - 72 U/L) 37 Troponin I (<0.11 ng/ml) < 0.01 Albumin (3.5 - 5.0 g/dL) 3.5 Coagulation PT (9.4 - 12.5 SEC) 12.7 H INR (0.90 - 1.17) 1.21 H APTT (25 - 37 SEC) 53 H 30 Hematology CBC w Diff NO MAN DIFF REQ WBC (4.8 - 10.8 /CUMM) 10.9 H RBC (4.70 - 6.10 /CUMM) 4.94 Hgb (14.0 - 18.0 G/DL) 15.2 Hct (42 - 52 %) 44.3 MCV (80.0 - 94.0 FL) 89.6 MCH (27.0 - 31.0 PG) 30.8 RDW (11.5 - 14.5 %) 13.4 Plt Count (130 - 400 /CUMM) 205 MPV (7.4 - 10.4 FL) 7.6 Gran % (42.2 - 75.2 %) 73.8 Lymphocytes % (20.5 - 51.1 %) 14.1 L Monocytes % (1.7 - 9.3 %) 11.7 H Eosinophils % (0 - 5 %) 0.1 Basophils % (0.0 - 2.0 %) 0.3 Absolute Granulocytes (1.4 - 6.5 /CUMM) 8.1 H Absolute Lymphocytes (1.2 - 3.4 /CUMM) 1.5 Absolute Monocytes (0.10 - 0.60 /CUMM) 1.3 H Absolute Eosinophils (0.0 - 0.7 /CUMM) 0 Absolute Basophils (0.0 - 0.2 /CUMM) 0 PUBS MCHC (33.0 - 37.0 G/DL) 34.4 07/15 07/15 2221 1925 Chemistry Sodium (137 - 145 mmol/L) 136 L Potassium (3.5 - 5.1 mmol/L) 4.2 Chloride (98 - 107 mmol/L) 98 Carbon Dioxide (22 - 30 mmol/L) 29 Anion Gap (5 - 16) 9 BUN (9 - 20 mg/dL) 14 Creatinine (0.7 - 1.2 mg/dL) 1.0 Estimated GFR (>60 ml/min) > 60 BUN/Creatinine Ratio (7 - 25 %) 14.0 Glucose (65 - 99 mg/dL) 104 H Lactic Acid (0.7 - 2.1 mmol/L) Cancelled 1.3 Calcium (8.4 - 10.2 mg/dL) 9.1 Phosphorus (2.5 - 4.5 mg/dL) 3.6 Magnesium (1.6 - 2.3 mg/dL) 1.8 Total Bilirubin (0.2 - 1.3 mg/dL) 0.8 AST (17 - 59 U/L) 25 ALT (21 - 72 U/L) 39 Alkaline Phosphatase (< 127 U/L) 63 Troponin I (<0.11 ng/ml) < 0.01 Total Protein (6.3 - 8.2 g/dL) 7.4 Albumin (3.5 - 5.0 g/dL) 4.2 Globulin (1.9 - 4.2 gm/dL) 3.2 Albumin/Globulin Ratio (1.1 - 2.2 %) 1.3 Amylase (30 - 110 U/L) 155 H Lipase (23 - 300 U/L) 80 Hematology CBC w Diff NO MAN DIFF REQ WBC (4.8 - 10.8 /CUMM) 8.7 RBC (4.70 - 6.10 /CUMM) 5.37 Hgb (14.0 - 18.0 G/DL) 16.4 Hct (42 - 52 %) 48.2 MCV (80.0 - 94.0 FL) 89.8 MCH (27.0 - 31.0 PG) 30.5 RDW (11.5 - 14.5 %) 13.4 Plt Count (130 - 400 /CUMM) 228 MPV (7.4 - 10.4 FL) 7.1 L Gran % (42.2 - 75.2 %) 72.5 Lymphocytes % (20.5 - 51.1 %) 16.0 L Monocytes % (1.7 - 9.3 %) 10.6 H Eosinophils % (0 - 5 %) 0.6 Basophils % (0.0 - 2.0 %) 0.3 Absolute Granulocytes (1.4 - 6.5 /CUMM) 6.3 Absolute Lymphocytes (1.2 - 3.4 /CUMM) 1.4 Absolute Monocytes (0.10 - 0.60 /CUMM) 0.9 H Absolute Eosinophils (0.0 - 0.7 /CUMM) 0 Absolute Basophils (0.0 - 0.2 /CUMM) 0 PUBS MCHC (33.0 - 37.0 G/DL) 33.9 Imaging/Other Studies: Chest CTA 07/15/2016: 1. Multiple segmental pulmonary emboli, all segments of both lungs. High clot burden. 2. Developing pulmonary infarct posterior peripheral right lower lobe versus atelectasis. Assessment/Plan Assessment: Mr. Tay is a 56-year-old male without significant medical history who presents with new bilateral segmental PE with likely developing pulmonary infarct. Etiology is unclear at the moment. His only recent procedure is varicose vein intervention. He does have family history of thrombosis in his brother. Given this finding, he should have work up as an outpatient for hereditary hypercoagulable state. Given the extensiveness of his disease, he should have echocardiogram done. He should have US of his lower extremity. He should be continued on heparin drip for now. Once stable, he can to transitioned to oral anticoagulant. Recommendations: 1. Obtain Echocardiogram 2. Obtain bilateral lower extremity US 3. Continue IV heparin 4. Hypercoagulable state work up as outpatient 5. If starting on warfarin, get protein C and S prior Problem List: 1. Pulmonary infarct 2. Multiple pulmonary emboli Other Findings/Comments: Please call [phone] with any questions or concerns Consult Acknowledgment - Thank you for your consult request.
[2016-07-16 13:15] LABS: PTT 51 SEC (25-37)
[2016-07-16 16:00] VITALS: BP 120/78
--- NOTE | 2016-07-16 16:34 | ULTRASOUND REPORT ---
EXAMINATION: US TRIPLEX LOWER EXTREMITY, BILATERAL CLINICAL INFORMATION: Bilateral segmental pulmonary emboli. COMPARISON: CTA of the chest 07/15/2016. TECHNIQUE: Color-flow triplex imaging with spectral analysis and compression Doppler were performed on the bilateral lower extremities. FINDINGS: Respiratory variation, normal compression and augmented flow are noted throughout the bilateral lower extremities. The visualized common femoral vein, superficial femoral vein, profunda femoral vein, popliteal vein and midcalf peroneal and posterior tibial venous segments show no evidence of deep venous thrombosis. There is no Poole's cyst. IMPRESSION: 1. No evidence of deep vein thrombosis in the right lower extremity. 2. Partially occluding thrombus in the mid left popliteal vein. No other deep vein thrombosis in the left lower extremity. This Critical Result was discussed with Dr. Shreya Dumont on 07/16/2016 at 1537 hours.
--- NOTE | 2016-07-16 17:25 | Event Note ---
Event Note Event Note: After getting results of bilateral Doppler ultrasound today, which showed partially occluded left popliteal vein, a consultation was placed to vascular surgeon Aleena Gonzales MD, with a query of any further interventions/IVC filter placement as the patient already has bilateral pulmonary embolism. She called around [address]15 [address] my resident Dr. Joey Diez had a conversation regarding plan of care. At this point of time, she suggested that the patient be continued on the same treatment, that is, heparin drip, and no further interventions would probably be required from vascular surgery right away. She would come in later to assess the patient herself and recommend further plans. Night team made aware. Need to follow up Vascular surgery note. -----
--- NOTE | 2016-07-16 20:53 | ECHOCARDIOGRAM REPORT ---
ZELDA CERVANTES Age: 56 : 1960 Gender: M Exam Date: 07/16/2016 10:32 Exam Location: [facility] Ht (in): 73 Wt (lb): 244 BSA: 2.42 BP: 133 / 79 Ordering Physician: RIC LOPEZ MD Referring Physician: RIC LOPEZ MD Technologist: Oli Bosch MONI Room Number: 102 Indications: Shortness of breath Rhythm: Sinus Technical Quality: Fair FINDINGS Left Ventricle Normal size left ventricle. Mild concentric left ventricular hypertrophy. Normal left ventricular wall motion. Normal left ventricular ejection fraction visually estimated at >65%. "pseudonormal" filling pattern of the left ventricle for age (stage 2 diastolic dysfunction). Right Ventricle Moderate right ventricular dilatation. Right Atrium Normal right atrial size. Left Atrium Normal left atrial size. Mitral Valve Mitral valve mildly thickened. No mitral regurgitation. Aortic Valve Trileaflet aortic valve. Mild aortic sclerosis. No aortic valve stenosis or regurgitation. Tricuspid Valve Structurally normal tricuspid valve. Trace tricuspid regurgitation. Mild pulmonary hypertension. Right ventricular systolic pressure estimated to be elevated at 36 mmHg. Pulmonic Valve Pulmonic valve not well visualized, grossly normal. No pulmonic regurgitation. Pericardium No pericardial effusion. Great Vessels Normal size aortic root. CONCLUSIONS Normal size left ventricle. Mild concentric left ventricular hypertrophy. Normal left ventricular wall motion. Normal left ventricular ejection fraction visually estimated at > 65%. "pseudonormal" filling pattern of the left ventricle for age (stage 2 diastolic dysfunction). Moderate right ventricular dilatation. Normal atrial size. Trace tricuspid regurgitation. Mild pulmonary hypertension. Raymon Taveras M.D. (Electronically Signed) Final Date: 16 July 2016 20:52 MEASUREMENTS (Male / Female) Normal Values 2D ECHO LV Diastolic Diameter PLAX 5.0 cm 4.2 - 5.9 / 3.9 - 5.3 cm LV Systolic Diameter PLAX 2.9 cm 2.1 - 4.0 cm LV Fractional Shortening PLAX 42.0 % 25 - 46 % LV Ejection Fraction 2D Teich 72.8 % IVS Diastolic Thickness 1.0 cm LVPW Diastolic Thickness 1.0 cm LV Relative Wall Thickness 0.4 RV Internal Dim ED PLAX 4.1 cm 1.9 - 3.8 cm LVOT Diameter 2.2 cm Aortic Root Diameter 3.0 cm LA Systolic Diameter LX 3.3 cm 3.0 - 4.0 / 2.7 - 3.8 cm Ascending Aorta Diameter 2.8 cm DOPPLER AV Peak Velocity 145.0 cm/s AV Peak Gradient 8.4 mmHg AV Mean Velocity 104.0 cm/s AV Mean Gradient 5.0 mmHg AV Velocity Time Integral 29.2 cm LVOT Peak Velocity 107.0 cm/s LVOT Peak Gradient 4.6 mmHg LVOT Mean Velocity 72.1 cm/s LVOT Mean Gradient 2.0 mmHg LVOT Velocity Time Integral 22.6 cm LVOT Stroke Volume 85.9 cm AV Area Cont Eq vti 2.9 cm AV Area Cont Eq pk 2.8 cm MV Peak Velocity 74.4 cm/s MV Peak Gradient 2.2 mmHg MV Mean Velocity 48.6 cm/s MV Mean Gradient 1.0 mmHg Mitral E Point Velocity 76.5 cm/s Mitral A Point Velocity 74.0 cm/s Mitral E to A Ratio 1.0 MV PHT Velocity 80.1 cm/s MV Deceleration Archer 344.0 cm/s MV Pressure Half Time 69.9 ms MV Area PHT 3.1 cm MV Deceleration Time 130.0 ms TR Peak Velocity 280.0 cm/s TR Peak Gradient 31.4 mmHg Right Atrial Pressure 5.0 mmHg Pulmonary Artery Systolic Pressu 36.4 mmHg Right Ventricular Systolic Press 36.4 mmHg PV Peak Velocity 121.0 cm/s PV Peak Gradient 5.9 mmHg PV Mean Velocity 79.1 cm/s PV Mean Gradient 3.0 mmHg PV Velocity Time Integral 22.0 cm LV E' Lateral Velocity 12.7 cm/s Mitral E to LV E' Lateral Ratio 6.0 LV E' Septal Velocity 8.3 cm/s Mitral E to LV E' Septal Ratio 9.2
[2016-07-16 21:55] LABS: PTT 66 SEC (25-37)
[2016-07-17] VITALS: BP 128/78
[2016-07-17 06:31] LABS: ABSOLUTE BASOPHIL COUNT 0 /CUMM (0.0-0.2); ABSOLUTE EOSINOPHIL COUNT 0 /CUMM (0.0-0.7); ABSOLUTE LYMPH COUNT 1.2 /CUMM (1.2-3.4); ABSOLUTE MONOCYTE COUNT 1.5 /CUMM (0.10-0.60); BASOPHIL % 0.1 % (0.0-2.0); EOSINOPHIL % 0 % (0-5); GRANULOCYTE % 78.9 % (42.2-75.2); HEMATOCRIT 45.4 % (42-52); MEAN CORPUSCULAR HGB 30.7 PG (27.0-31.0); MEAN CORPUSCULAR HGB CONC 33.5 G/DL (33.0-37.0); MEAN CORPUSCULAR VOLUME 91.6 FL (80.0-94.0); MEAN PLATELET VOLUME 7.4 FL (7.4-10.4); PLATELET COUNT 205 /CUMM (130-400); RED BLOOD CELL CT 4.96 /CUMM (4.70-6.10); WHITE BLOOD CELL COUNT 12.7 /CUMM (4.8-10.8)
[2016-07-17 08:00] VITALS: BP 110/60
--- NOTE | 2016-07-17 08:15 | PN- Resident CRCU ---
Subjective HPI/CRCU Issues: Patient went into rapid atrial fibrillation this morning at 8 AM. This was confirmed by EKG. Patient was seen and examined at bedside. He remains on IV heparin. He endorses palpitations and mild shortness of breath. He continues to have right-sided chest pain, currently 5 out of 10 in intensity. He was given two doses of 5 mg of IV Cardizem with no improvement in his heart rate and was started on IV Cardizem drip. Per nursing staff, patient had been complaining of difficulty voiding and initiating a urinary stream. Bladder scan revealed 900 mL of retained urine and Palacio was subsequently placed. Patient was noted to have a small urethral meatus which was present from per patient and a small lumen catheter was placed which drained 1000 mL or urine. Objective Vital Signs & I&O Last 8 Hrs of Vitals and I&O: Vital Signs Date Time Temp Pulse Resp B/P Pulse O2 O2 Flow FiO2 Ox Delivery Rate 07/17 0837 124 125/64 07/17 0813 145 110/60 07/17 0400 94 Nasal 2.0L Cannula 07/17 0000 92 Nasal 2.0L Cannula 07/17 0000 98.3 88 18 128/78 92 Nasal 2.0L Cannula 07/16 2000 94 Nasal 2.0L Cannula 07/16 1900 90 Nasal 2.0L Cannula 07/16 1600 98.4 88 22 120/78 95 Room Air 07/16 1600 94 Room Air 07/16 1200 94 Room Air 07/16 1155 Room Air Room Air Exam General Appearance: well developed/nourished, no apparent distress, alert, awake , comfortable, oriented x3 Head: atraumatic, normal appearance Ears, Nose, Throat: moist mucus membranes Neck: supple Respiratory: lungs clear Cardiovascular: irregularly irregular, no murmurs, rubs or gallops Gastrointestinal: soft, non-tender, positive bowel sounds Extremities: left lower extremity with trace edema, nontender Cranial Nerves: grossly normal Skin: warm/dry Current Medications: Current Medications Sig/Julianna Start time Last Medication Dose Route Stop Time Status Admin Acetaminophen 650 MG Q6P PRN 07/15 2330 AC PO Dextrose/Sodium 1,000 ML .[id number] 07/15 2330 DC 07/17 Chloride IV 0220 Diltiazem HCl 5 MG ONCE ONE 07/17 0845 DC 07/17 IV PUSH 07/17 0846 0837 Diltiazem HCl 125 MG Q12H 07/17 0845 AC 07/17 Sodium Chloride 100 ML IV 0843 Diltiazem HCl 5 MG ONCE ONE 07/17 0815 DC 07/17 IV PUSH 07/17 08 0813 Heparin Sodium 4,400 UNIT ONCE ONE 07/16 1530 DC 07/16 (Porcine) IV 07/16 1531 1533 Heparin Sodium 25,000 UNIT Q24H 07/15 2215 AC 07/17 (Porcine) IV 0640 Sodium Chloride 500 ML Hydromorphone HCl 0.4 MG Q4P PRN 07/15 2330 AC 07/17 IV 0858 Magnesium Oxide 400 MG ONE ONE 07/17 08 DC 07/17 PO 07/17 08 0838 Oxycodone/ 2 TAB Q6P PRN 07/15 2330 AC 07/16 Acetaminophen PO 2003 Results Results: Laboratory Tests 07/17 07/17 07/16 0850 0600 2110 Chemistry Sodium (137 - 145 mmol/L) 131 L Potassium (3.5 - 5.1 mmol/L) 4.1 Chloride (98 - 107 mmol/L) 97 L Carbon Dioxide (22 - 30 mmol/L) 26 Anion Gap (5 - 16) 8 BUN (9 - 20 mg/dL) 10 Creatinine (0.7 - 1.2 mg/dL) 0.8 Estimated GFR (>60 ml/min) > 60 BUN/Creatinine Ratio (7 - 25 %) 12.5 Magnesium (1.6 - 2.3 mg/dL) 1.8 Troponin I (<0.11 ng/ml) < 0.01 Coagulation APTT (25 - 37 SEC) 49 H 66 H Hematology CBC w Diff NO MAN DIFF REQ WBC (4.8 - 10.8 /CUMM) 12.7 H RBC (4.70 - 6.10 /CUMM) 4.96 Hgb (14.0 - 18.0 G/DL) 15.2 Hct (42 - 52 %) 45.4 MCV (80.0 - 94.0 FL) 91.6 MCH (27.0 - 31.0 PG) 30.7 RDW (11.5 - 14.5 %) 13.0 Plt Count (130 - 400 /CUMM) 205 MPV (7.4 - 10.4 FL) 7.4 Gran % (42.2 - 75.2 %) 78.9 H Lymphocytes % (20.5 - 51.1 %) 9.1 L Monocytes % (1.7 - 9.3 %) 11.9 H Eosinophils % (0 - 5 %) 0 Basophils % (0.0 - 2.0 %) 0.1 Absolute Granulocytes (1.4 - 6.5 /CUMM) 10.0 H Absolute Lymphocytes (1.2 - 3.4 /CUMM) 1.2 Absolute Monocytes (0.10 - 0.60 /CUMM) 1.5 H Absolute Eosinophils (0.0 - 0.7 /CUMM) 0 Absolute Basophils (0.0 - 0.2 /CUMM) 0 PUBS MCHC (33.0 - 37.0 G/DL) 33.5 07/16 07/16 1940 1220 Coagulation APTT (25 - 37 SEC) 51 H Urines Urine Color (YEL,AMB,STR) YEL Urine Clarity (CLEAR) CLEAR Urine pH (5.0 - 8.0) 7.0 Ur Specific [place] (1.001 - 1.035) 1.010 Urine Protein (NEG,<30 MG/DL) NEG Urine Ketones (NEG) NEG Urine Nitrite (NEG) NEG Urine Bilirubin (NEG) NEG Urine Urobilinogen (0.1 - 1.0 EU/dl) 0.2 Ur Leukocyte Esterase (NEG) NEG Ur Microscopic SEDIMENT EXAMINED Urine RBC (0 - 5 /HPF) 3-5 Urine WBC (0 - 2 /HPF) 1-3 H Urine Hemoglobin (NEG) TRACE-INTACT H Urine Glucose (N MG/DL) NEG EKG Findings: Atrial fibrillation with HR 103-167 ECHO Findings: Normal size left ventricle. Mild concentric left ventricular hypertrophy. Normal left ventricular wall motion. Normal left ventricular ejection fraction visually estimated at > 65%. "pseudonormal" filling pattern of the left ventricle for age (stage 2 diastolic dysfunction). Moderate right ventricular dilatation. Normal atrial size. Trace tricuspid regurgitation. Mild pulmonary hypertension. US Findings: BLE DOPPLER US: 1. No evidence of deep vein thrombosis in the right lower extremity. 2. Partially occluding thrombus in the mid left popliteal vein. No other deep vein thrombosis in the left lower extremity. Impression/Plan Impression/Problem List Impression: 56 y/o M with PMHx of varicose veins s/p vein closure and disc herniation who presents with left popliteal DVT and acute bilateral PE with probable pulmonary infarct. Problem List: 1. Deep vein thrombosis (DVT) of popliteal vein of left lower extremity 2. Bilateral pulmonary embolism 3. New onset atrial fibrillation Pain Ratin Tomorrow's Labs & Rationales: CBC and ICU bundle (ICU patient) INR in the setting of warfarin therapy Plan Respiratory: #SOB: Patient was placed on 2 L NC yesterday for increasing SOB. Remains on 2 L NC. * Continue to provide supplemental oxygen to keep SpO2 > 92%. Infectious Diseases: Remains afebrile. WBC continues to uptrend, 12.7 from 10.9 yesterday, most likely reactive in the absence of signs or symptoms of infection. Cardiovascular: #New onset-atrial fibrillation: Went into atrial fibrillation around 8 AM this morning. Troponin negative. ECHO demonstrating mild pulmonary hypertension with pulmonary artery pressure slightly elevated at 36 mmHg. * Cardiology consulted. Following their recs. * Continue IV Cardizem drip for rate control. If rate control is suboptimal on maximum doses of Cardizem, add beta-yaa. * Per cardiology assessment, patient will most likely convert to sinus rhythm spontaneously. If he still remains in atrial fibrillation in 1-2 days, consider starting other antiarrhythmic drugs. * Trend troponin and EKG. Hematology: #LLE DVT and acute PE: CT Chest with bilateral segmental PE with likely developing pulmonary infarct. Source is LLE with BLE Doppler US revealing partially occluding thrombus in the mid left popliteal vein. Likely triggered by recent vein closure. * Hematology following. Appreciate their recs. * Vascular surgery consulted for further management of the residual clot. No vascular intervention planned. Recommended pursuing anti-coagulation for 3 months and follow-up with Dr. Gonzales. * Elevate left lower extremity to the level of the heart. * Apply kerlex/carrillo wrap compression stockings to the left leg for comfort as needed. Change dressings daily to maintain compression. * Continue IV heparin. * Transition to oral anti-coagulation once patient is stable. * Hypercoagulable work-up needs to be performed as outpatient given family history of thrombosis. * Will start warfarin per patient's preference. Administer 5 mg this evening. Re -check INR in the AM and dose accordingly. Metabolic: No issues. Alimentary: Regular diet Neurological: AAO x3. No issues. Skin: No issues. DVT/Prophylaxis: pharmacological Code Status: Full Code
[2016-07-17 09:34] LABS: PTT 49 SEC (25-37)
--- NOTE | 2016-07-17 10:04 | PN- Pulmonary ---
Subjective HPI/Critical Care Issues: He continues to have right chest pain he went into atrial fibrillation and remains so on a Cardizem drip and IV heparin awaiting vascular evaluation for management of lower extremity DVT Objective Current Medications: Current Medications Sig/Julianna Start time Last Medication Dose Route Stop Time Status Admin Acetaminophen 650 MG Q6P PRN 07/15 2330 AC PO Dextrose/Sodium 1,000 ML .[id number] 07/15 2330 DC 07/17 Chloride IV 0220 Diltiazem HCl 5 MG ONCE ONE 07/17 0845 DC 07/17 IV PUSH 07/17 0846 0837 Diltiazem HCl 125 MG Q12H 07/17 0845 AC 07/17 Sodium Chloride 100 ML IV 0843 Diltiazem HCl 5 MG ONCE ONE 07/17 0815 DC 07/17 IV PUSH 07/17 0816 0813 Heparin Sodium 4,400 UNIT ONCE ONE 07/16 1530 DC 07/16 (Porcine) IV 07/16 1531 1533 Heparin Sodium 25,000 UNIT Q24H 07/15 2215 AC 07/17 (Porcine) IV 0640 Sodium Chloride 500 ML Hydromorphone HCl 0.4 MG Q4P PRN 07/15 2330 AC 07/17 IV 0858 Magnesium Oxide 400 MG ONE ONE 07/17 0815 DC 07/17 PO 07/17 0816 0838 Oxycodone/ 2 TAB Q6P PRN 07/15 2330 AC 07/16 Acetaminophen PO 2003 Vital Signs & I&O Last 24 Hrs of Vitals and I&O: Vital Signs Date Time Temp Pulse Resp B/P Pulse O2 O2 Flow FiO2 Ox Delivery Rate 07/17 0837 124 125/64 07/17 0813 145 110/60 07/17 0800 98.8 156 26 110/60 95 Nasal 2.0L Cannula 07/17 0400 94 Nasal 2.0L Cannula 07/17 0000 92 Nasal 2.0L Cannula 07/17 0000 98.3 88 18 128/78 92 Nasal 2.0L Cannula 07/16 2000 94 Nasal 2.0L Cannula 07/16 1900 90 Nasal 2.0L Cannula 07/16 1600 98.4 88 22 120/78 95 Room Air 07/16 1600 94 Room Air 07/16 1200 94 Room Air 07/16 1155 Room Air Room Air Intake & Output 07/17 1600 07/17 0800 07/17 0000 Intake Total 1154 1878 Output Total 600 500 Balance 554 1378 Intake, IV 954 1078 Intake, Oral 200 800 Number 0 2 Bowel Movements Output, Urine 600 500 Patient 244 lb 244 lb Weight Remains elevated and atrial fibrillation oxygen saturation on 2 L 95% his blood pressure is stable exam of his chest shows somewhat diminished breath sounds there are no rubs heard cardiac exam shows a regular rhythm Impression/Plan Impression/Plan Impression/Plan: 56-year-old gentleman status post vein closure subsequent DVT complicated by pulmonary embolism with probable infarct and now atrial fibrillation. Cardiac ultrasound does not show significant pulmonary hypertension. Patient remains on IV heparin waiting vascular surgery evaluation this morning Recommendations: Continue therapeutic IV heparin. Vascular intervention is planned begin oral Coumadin. Allergy to follow for management of atrial fibrillation.
--- NOTE | 2016-07-17 10:08 | Cons- Cardiology ---
General Information and HPI Consulting Request Date of Consult: 07/17/16 Requested By: GILBERT KINNEY MD Reason for Consult: New-onset atrial fibrillation in a patient with acute pulmonary embolism. Source of Information: patient, old records Exam Limitations: no limitations History of Present Illness: The patient is a 56-year-old man who has been generally healthy. He has no history of heart disease and is taking no cardiac medications. He has no history of hypertension or diabetes. The patient has a history of recent varicose vein surgery done in an office setting. The patient presented 2 days ago with chest pain and shortness of breath. CT of the chest documented multiple segmental pulmonary emboli bilaterally. There was also possible pulmonary infarct. He has been in the ICU on heparin. This morning about 8:00 he was noted to become tachycardiac and his EKG documented rapid atrial fibrillation. There were no ischemic changes. He was really not symptomatic. He is not having any chest pain. He was started on IV Cardizem bolus and IV Cardizem drip. His heart rate remains elevated and his Cardizem is being tapered upwards. His echocardiogram showed only mild LVH and some right heart dilatation but his pulmonary artery pressure was mildly elevated at 36 mmHg. Allergies/Medications Allergies: Coded Allergies: No Known Allergies (07/15/16) Home Med List: Aspirin (Aspirin*) 81 MG TAB.CHEW 1 TAB PO EVER OTHER DAY HEART (Reported) Review of Systems Review of Systems: He has no other complaints in the review of systems at this time. Past History Travel History Traveled to [place] past 21 day No Medical History Blood Transfusion Hx: No Neurological: NONE EENT: NONE Cardiovascular: varicose veins Respiratory: NONE Gastrointestinal: NONE Hepatic: NONE Renal: NONE Musculoskeletal: L4-L5 DISK HERNIATION W/ REPAIR-1995 Psychiatric: NONE Endocrine: NONE Blood Disorders: NONE Cancer(s): NONE AIDS NURSE/Reproductive: NONE Other Medical Hx: Varicose vein Surgical History Surgical History: VARICOSE VEIN STRIPED- LEFT LEG 05/2016 TONSILLECTOMY-1963 Family History Relations & Conditions If Any: BROTHER (DM, HTN, CLOT). FATHER (mULTIPLE HEART ATTACK, FIRST ONE AROUND 40-YEAR-OLD). . MOTHER (cOLON CANCER, BREAST CANCER). . Psychosocial History Where Do You Live? Home Services at Home: None Smoking Status: Never Smoked ETOH Use: denies use Illicit Drug Use: denies illicit drug use, remote history of drug abuse 30 years ago Functional Ability ADLs Independent: dressing, eating, toileting, bathing. Ambulation: independent IADLs Independent: shopping, housework, finances, food prep, telephone, transportation , medication admin. 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 Exam & Diagnostic Data Vital Signs and I&O Vital Signs Date Time Temp Pulse Resp B/P Pulse O2 O2 Flow FiO2 Ox Delivery Rate 07/17 0837 124 125/64 07/17 0813 145 110/60 07/17 0800 98.8 156 26 110/60 95 Nasal 2.0L Cannula 07/17 0400 94 Nasal 2.0L Cannula 07/17 0000 92 Nasal 2.0L Cannula 07/17 0000 98.3 88 18 128/78 92 Nasal 2.0L Cannula 07/16 2000 94 Nasal 2.0L Cannula 07/16 1900 90 Nasal 2.0L Cannula 07/16 1600 98.4 88 22 120/78 95 Room Air 07/16 1600 94 Room Air 07/16 1200 94 Room Air 07/16 1155 Room Air Room Air Intake & Output 07/17 1600 07/17 0800 07/17 0000 07/16 1600 07/16 0800 07/16 0000 Intake Total 1154 1878 1842 1133 Output Total 600 500 450 500 Balance 554 1378 1392 633 Intake, IV 954 1078 1042 833 Intake, Oral 200 800 800 300 Number 0 2 0 Bowel Movements Output, Urine 600 500 450 500 Patient 244 lb 244 lb 244 lb 244 lb Weight Physical Exam: Well-developed well-nourished middle-aged male in no acute distress HEENT exam normal Neck veins not distended Carotids normal Chest clear Heart irregular rapid rhythm with no murmurs Extremities nontender and trace edema on the left lower extremity Labs/Alejo Results: Laboratory Tests 07/17 07/17 07/16 0850 0600 2110 Chemistry Sodium (137 - 145 mmol/L) 131 L Potassium (3.5 - 5.1 mmol/L) 4.1 Chloride (98 - 107 mmol/L) 97 L Carbon Dioxide (22 - 30 mmol/L) 26 Anion Gap (5 - 16) 8 BUN (9 - 20 mg/dL) 10 Creatinine (0.7 - 1.2 mg/dL) 0.8 Estimated GFR (>60 ml/min) > 60 BUN/Creatinine Ratio (7 - 25 %) 12.5 Magnesium (1.6 - 2.3 mg/dL) 1.8 Troponin I (<0.11 ng/ml) < 0.01 Coagulation APTT (25 - 37 SEC) 49 H 66 H Hematology CBC w Diff NO MAN DIFF REQ WBC (4.8 - 10.8 /CUMM) 12.7 H RBC (4.70 - 6.10 /CUMM) 4.96 Hgb (14.0 - 18.0 G/DL) 15.2 Hct (42 - 52 %) 45.4 MCV (80.0 - 94.0 FL) 91.6 MCH (27.0 - 31.0 PG) 30.7 RDW (11.5 - 14.5 %) 13.0 Plt Count (130 - 400 /CUMM) 205 MPV (7.4 - 10.4 FL) 7.4 Gran % (42.2 - 75.2 %) 78.9 H Lymphocytes % (20.5 - 51.1 %) 9.1 L Monocytes % (1.7 - 9.3 %) 11.9 H Eosinophils % (0 - 5 %) 0 Basophils % (0.0 - 2.0 %) 0.1 Absolute Granulocytes (1.4 - 6.5 /CUMM) 10.0 H Absolute Lymphocytes (1.2 - 3.4 /CUMM) 1.2 Absolute Monocytes (0.10 - 0.60 /CUMM) 1.5 H Absolute Eosinophils (0.0 - 0.7 /CUMM) 0 Absolute Basophils (0.0 - 0.2 /CUMM) 0 PUBS MCHC (33.0 - 37.0 G/DL) 33.5 07/16 07/16 07/16 1940 1220 0810 Chemistry Troponin I (<0.11 ng/ml) < 0.01 Coagulation APTT (25 - 37 SEC) 51 H Urines Urine Color (YEL,AMB,STR) YEL Urine Clarity (CLEAR) CLEAR Urine pH (5.0 - 8.0) 7.0 Ur Specific [place] (1.001 - 1.035) 1.010 Urine Protein (NEG,<30 MG/DL) NEG Urine Ketones (NEG) NEG Urine Nitrite (NEG) NEG Urine Bilirubin (NEG) NEG Urine Urobilinogen (0.1 - 1.0 EU/dl) 0.2 Ur Leukocyte Esterase (NEG) NEG Ur Microscopic SEDIMENT EXAMINED Urine RBC (0 - 5 /HPF) 3-5 Urine WBC (0 - 2 /HPF) 1-3 H Urine Hemoglobin (NEG) TRACE-INTACT H Urine Glucose (N MG/DL) NEG 07/16 07/16 07/15 0450 0130 2236 Chemistry Sodium (137 - 145 mmol/L) 134 L Potassium (3.5 - 5.1 mmol/L) 3.9 Chloride (98 - 107 mmol/L) 101 Carbon Dioxide (22 - 30 mmol/L) 25 Anion Gap (5 - 16) 9 BUN (9 - 20 mg/dL) 12 Creatinine (0.7 - 1.2 mg/dL) 0.9 Estimated GFR (>60 ml/min) > 60 Glucose (65 - 99 mg/dL) 126 H Calcium (8.4 - 10.2 mg/dL) 8.4 Phosphorus (2.5 - 4.5 mg/dL) 3.4 Magnesium (1.6 - 2.3 mg/dL) 1.8 Total Bilirubin (0.2 - 1.3 mg/dL) 1.3 AST (17 - 59 U/L) 19 ALT (21 - 72 U/L) 37 Troponin I (<0.11 ng/ml) < 0.01 Albumin (3.5 - 5.0 g/dL) 3.5 Coagulation PT (9.4 - 12.5 SEC) 12.7 H INR (0.90 - 1.17) 1.21 H APTT (25 - 37 SEC) 53 H 30 Hematology CBC w Diff NO MAN DIFF REQ WBC (4.8 - 10.8 /CUMM) 10.9 H RBC (4.70 - 6.10 /CUMM) 4.94 Hgb (14.0 - 18.0 G/DL) 15.2 Hct (42 - 52 %) 44.3 MCV (80.0 - 94.0 FL) 89.6 MCH (27.0 - 31.0 PG) 30.8 RDW (11.5 - 14.5 %) 13.4 Plt Count (130 - 400 /CUMM) 205 MPV (7.4 - 10.4 FL) 7.6 Gran % (42.2 - 75.2 %) 73.8 Lymphocytes % (20.5 - 51.1 %) 14.1 L Monocytes % (1.7 - 9.3 %) 11.7 H Eosinophils % (0 - 5 %) 0.1 Basophils % (0.0 - 2.0 %) 0.3 Absolute Granulocytes (1.4 - 6.5 /CUMM) 8.1 H Absolute Lymphocytes (1.2 - 3.4 /CUMM) 1.5 Absolute Monocytes (0.10 - 0.60 /CUMM) 1.3 H Absolute Eosinophils (0.0 - 0.7 /CUMM) 0 Absolute Basophils (0.0 - 0.2 /CUMM) 0 PUBS MCHC (33.0 - 37.0 G/DL) 34.4 07/15 07/15 2221 1925 Chemistry Sodium (137 - 145 mmol/L) 136 L Potassium (3.5 - 5.1 mmol/L) 4.2 Chloride (98 - 107 mmol/L) 98 Carbon Dioxide (22 - 30 mmol/L) 29 Anion Gap (5 - 16) 9 BUN (9 - 20 mg/dL) 14 Creatinine (0.7 - 1.2 mg/dL) 1.0 Estimated GFR (>60 ml/min) > 60 BUN/Creatinine Ratio (7 - 25 %) 14.0 Glucose (65 - 99 mg/dL) 104 H Lactic Acid (0.7 - 2.1 mmol/L) Cancelled 1.3 Calcium (8.4 - 10.2 mg/dL) 9.1 Phosphorus (2.5 - 4.5 mg/dL) 3.6 Magnesium (1.6 - 2.3 mg/dL) 1.8 Total Bilirubin (0.2 - 1.3 mg/dL) 0.8 AST (17 - 59 U/L) 25 ALT (21 - 72 U/L) 39 Alkaline Phosphatase (< 127 U/L) 63 Troponin I (<0.11 ng/ml) < 0.01 Total Protein (6.3 - 8.2 g/dL) 7.4 Albumin (3.5 - 5.0 g/dL) 4.2 Globulin (1.9 - 4.2 gm/dL) 3.2 Albumin/Globulin Ratio (1.1 - 2.2 %) 1.3 Amylase (30 - 110 U/L) 155 H Lipase (23 - 300 U/L) 80 Hematology CBC w Diff NO MAN DIFF REQ WBC (4.8 - 10.8 /CUMM) 8.7 RBC (4.70 - 6.10 /CUMM) 5.37 Hgb (14.0 - 18.0 G/DL) 16.4 Hct (42 - 52 %) 48.2 MCV (80.0 - 94.0 FL) 89.8 MCH (27.0 - 31.0 PG) 30.5 RDW (11.5 - 14.5 %) 13.4 Plt Count (130 - 400 /CUMM) 228 MPV (7.4 - 10.4 FL) 7.1 L Gran % (42.2 - 75.2 %) 72.5 Lymphocytes % (20.5 - 51.1 %) 16.0 L Monocytes % (1.7 - 9.3 %) 10.6 H Eosinophils % (0 - 5 %) 0.6 Basophils % (0.0 - 2.0 %) 0.3 Absolute Granulocytes (1.4 - 6.5 /CUMM) 6.3 Absolute Lymphocytes (1.2 - 3.4 /CUMM) 1.4 Absolute Monocytes (0.10 - 0.60 /CUMM) 0.9 H Absolute Eosinophils (0.0 - 0.7 /CUMM) 0 Absolute Basophils (0.0 - 0.2 /CUMM) 0 PUBS MCHC (33.0 - 37.0 G/DL) 33.9 Diagnostic Data EKG Results EKG on admission showed sinus tachycardia at a rate of 103 and no significant abnormalities. EKG this morning at 8:00 AM showed atrial fibrillation rate 143 with no acute changes CXR Results PATIENT: ZELDA CERVANTES PRESENT AGE: 56 PATIENT ACCOUNT NO: [id number] : 56 LOCATION: [facility] ORDERING PHYSICIAN: CHATO OLIVARES SERVICE DATE: 07/15/16 EXAM TYPE: RAD - XRY-CHEST XRAY, PA AND LATERAL EXAMINATION: XR CHEST CLINICAL INFORMATION: 56-year-old male patient with fever and bodyaches. Right shoulder pain. COMPARISON: None TECHNIQUE: PA and lateral erect views of the chest. FINDINGS: Lung volumes are somewhat diminished. Nevertheless, there is a peripheral area of consolidation in the right lower lobe consistent with a diagnosis of right lower lobe pneumonia. Platelike atelectasis is seen in the lower left hemithorax. Heart is normal in size and the thoracic aorta uncoiled. IMPRESSION: Right lower lobe pneumonia. DICTATED BY: PIETER WHITMAN MD DATE/TIME DICTATED:07/15/162000 CASKET ASSEMBLER:SUNDAY DATE/TIME TRANSCRIBED:07/15/162000 CONFIDENTIAL, DO NOT COPY WITHOUT APPROPRIATE AUTHORIZATION. <Electronically signed in Other Vendor System> SIGNED BY: PIETER WHITMAN MD [id number] Other Results CONCLUSIONS Normal size left ventricle. Mild concentric left ventricular hypertrophy. Normal left ventricular wall motion. Normal left ventricular ejection fraction visually estimated at > 65%. "pseudonormal" filling pattern of the left ventricle for age (stage 2 diastolic dysfunction). Moderate right ventricular dilatation. Normal atrial size. Trace tricuspid regurgitation. Mild pulmonary hypertension. Raymon Taveras M.D. (Electronically Signed) Final Date: 16 July 2016 20:52 IMPRESSION: 1. No evidence of deep vein thrombosis in the right lower extremity. 2. Partially occluding thrombus in the mid left popliteal vein. No other deep vein thrombosis in the left lower extremity. This Critical Result was discussed with Dr. Shreya Dumont on 07/16/2016 at 1537 hours. DICTATED BY: SADAF CALVIN MD DATE/TIME DICTATED:07/16/161535 CASKET ASSEMBLER:SUNDAY DATE/TIME TRANSCRIBED:07/16/161535 Assessment/Plan Assessment/Plan The patient presents with new-onset rapid atrial fibrillation in the setting of acute pulmonary embolism and pulmonary infarct. He does not have significant underlying heart disease by history or by echocardiogram. He has only mild pulmonary hypertension. I recommend continuing IV Cardizem for rate control. If he is not adequately controlled on maximum doses of Cardizem we can add a beta yaa. I believe he will probably return to sinus rhythm spontaneously. IF he does not return in 24 -48 hours then we could consider other antiarrhythmic drugs such as short-term amiodarone. Obviously he will need to be continued on full anticoagulation for a significant period of time for both his pulmonary embolism and atrial fibrillation. Consult Acknowledgment - Thank you for your consult request.
--- NOTE | 2016-07-17 10:34 | Cons- Vascular Surgery ---
General Information and HPI Consulting Request Date of Consult: 07/17/16 Requested By: GILBERT KINNEY MD Reason for Consult: popliteal DVT Source of Information: patient Exam Limitations: no limitations History of Present Illness: Patient is a 56 year old male with a past medical history significant for varicostities to lower extremities and hx of disc herniation. He was in his usual state of health until 07/16/16 where he developed right sided chest pain with chest palpitations without associated shortness of breath, prompting him to seek the help of the emergency department. He was found to have bilateral segmental pulmonary emboli and was started on IV heparin. 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 He does not sit at his desk often, except for his occassional breaks. Denies recent travel. He does state his brother has had a blood clot in the past. Allergies/Medications Allergies: Coded Allergies: No Known Allergies (07/15/16) Home Med List: Aspirin (Aspirin*) 81 MG TAB.CHEW 1 TAB PO EVER OTHER DAY HEART (Reported) Past History Medical History Blood Transfusion Hx: No Neurological: NONE EENT: NONE Cardiovascular: varicose veins Respiratory: NONE Gastrointestinal: NONE Hepatic: NONE Renal: NONE Musculoskeletal: L4-L5 DISK HERNIATION W/ REPAIR-1995 Psychiatric: NONE Endocrine: NONE Blood Disorders: NONE Cancer(s): NONE COMMUNICATION ANALYST/Reproductive: NONE Other Medical Hx: Varicose vein Surgical History Pertinent Surgical History: VARICOSE VEIN STRIPED- LEFT LEG 05/2016 TONSILLECTOMY -1963 Family History Relations & Conditions If Any: BROTHER (DM, HTN, CLOT). FATHER (mULTIPLE HEART ATTACK, FIRST ONE AROUND 40-YEAR-OLD). . MOTHER (cOLON CANCER, BREAST CANCER). . Psychosocial History Where Do You Live? Home Services at Home: None Smoking Status: Never Smoked ETOH Use: denies use Illicit Drug Use: denies illicit drug use, remote history of drug abuse 30 years ago Functional Ability ADLs Independent: dressing, eating, toileting, bathing. Ambulation: independent IADLs Independent: shopping, housework, finances, food prep, telephone, transportation , medication admin. 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 Review of Systems Review of Systems: negative except what is in HPI Exam & Diagnostic Data Vital Signs and I&O Vital Signs Date Time Temp Pulse Resp B/P Pulse O2 O2 Flow FiO2 Ox Delivery Rate 07/17 1028 145 100/60 07/17 0837 124 125/64 07/17 0813 145 110/60 07/17 0800 98.8 156 26 110/60 95 Nasal 2.0L Cannula 07/17 0400 94 Nasal 2.0L Cannula 07/17 0000 92 Nasal 2.0L Cannula 07/17 0000 98.3 88 18 128/78 92 Nasal 2.0L Cannula 07/16 2000 94 Nasal 2.0L Cannula 07/16 1900 90 Nasal 2.0L Cannula 07/16 1600 98.4 88 22 120/78 95 Room Air 07/16 1600 94 Room Air 07/16 1200 94 Room Air 07/16 1155 Room Air Room Air Intake & Output 07/17 1600 07/17 0800 07/17 0000 07/16 1600 07/16 0800 07/16 0000 Intake Total 1154 1878 1842 1133 Output Total 600 500 450 500 Balance 554 1378 1392 633 Intake, IV 954 1078 1042 833 Intake, Oral 200 800 800 300 Number 0 2 0 Bowel Movements Output, Urine 600 500 450 500 Patient 244 lb 244 lb 244 lb 244 lb Weight Physical Exam: Gen: AAOx3 in NAD Cor: S1+S2+ Lungs: CTA franko Abd: soft, NT, ND, +Bs x4 Ext: trace edema to left calf. No posterior calf tenderness to franko lower extremities. palpable Dp pulses. Sensation/motor exam grossly intact. Imaging Results: EXAM TYPE: CAT - CTA CHEST-PULMONARY EMBOLISM EXAMINATION: CT ANGIOGRAM OF THE CHEST WITH AND WITHOUT CONTRAST (CT PULMONARY ANGIOGRAM FOR PE) CLINICAL INFORMATION: Reason for Study:
Presumptive Dx: SEVERE RIGHT SIDED RIB PAIN, R/O PULM EMB/INFARCT
Signs Symptoms: PAIN OUT OF PROPORTION ON EXAM
COMPARISON: None TECHNIQUE: Prior to contrast administration, noncontrast localization images were obtained. Subsequently, multidetector volumetric imaging was performed from the thoracic inlet to below the diaphragms following the administration of 101 mL Optiray 350 intravenous contrast. No contrast reaction reported Sagittal, coronal, and MIP oblique sagittal reformatted images were obtained on the CT workstation, uploaded to PACS, and reviewed. Total exam dose-length product 610 mGy-cm FINDINGS: QUALITY OF STUDY/CONTRAST BOLUS: Unsatisfactory. PULMONARY ARTERIES: The timing bolus was somehow misconstrued and the study is performed in the levo phase of injection. Nevertheless, the main pulmonary artery and left and right branches do not have intraluminal thrombus formation. However, there is clot formation in all the segmental branches of both lungs. The clot burden therefore is high. THORACIC AORTA: No aneurysm or dissection. LUNG: The focal consolidation on the chest x-ray done this evening would be consistent with a Cespedes's hump or pulmonary infarction. On the present study there is parenchymal opacity in the right lower lobe that is either atelectasis or an infarction of the lung. The patient's pain is localized specifically to this area. There is some dependent atelectasis in the left lower lobe. PLEURA: No pleural effusion or pneumothorax. MEDIASTINUM: Normal heart size. No pericardial effusion. No hilar or mediastinal lymphadenopathy. No evidence of septal bowing or right heart strain. CHEST WALL/AXILLA: No axillary or internal mammary lymphadenopathy. OSSEOUS STRUCTURES: No acute or suspicious osseous abnormality. UPPER ABDOMEN: Unremarkable. No reflux of contrast into the hepatic veins to suggest elevated right heart pressures. IMPRESSION: 1. Multiple segmental pulmonary emboli, all segments of both lungs. High clot burden. 2. Developing pulmonary infarct posterior peripheral right lower lobe versus atelectasis. VTE: Positive. This critical result was discussed with Dr. Shaun Bain at 10:00 PM on July 15 and it was ascertained that the content and urgency of the report was understood at the time of direct communication. DICTATED BY: PIETER WHITMAN MD DATE/TIME DICTATED:07/15/162153 FRONT END DRIVER:SUNDAY DATE/TIME TRANSCRIBED:07/15/162153 CONFIDENTIAL, DO NOT COPY WITHOUT APPROPRIATE AUTHORIZATION. <Electronically signed in Other Vendor System> SIGNED BY: PIETER WHITMAN MD [id number] Other Results: EXAM TYPE: US - US-EXT BILAT VENOUS DOPPLER EXAMINATION: US TRIPLEX LOWER EXTREMITY, BILATERAL CLINICAL INFORMATION: Bilateral segmental pulmonary emboli. COMPARISON: CTA of the chest 07/15/2016. TECHNIQUE: Color-flow triplex imaging with spectral analysis and compression Doppler were performed on the bilateral lower extremities. FINDINGS: Respiratory variation, normal compression and augmented flow are noted throughout the bilateral lower extremities. The visualized common femoral vein, superficial femoral vein, profunda femoral vein, popliteal vein and midcalf peroneal and posterior tibial venous segments show no evidence of deep venous thrombosis. There is no Poole's cyst. IMPRESSION: 1. No evidence of deep vein thrombosis in the right lower extremity. 2. Partially occluding thrombus in the mid left popliteal vein. No other deep vein thrombosis in the left lower extremity. This Critical Result was discussed with Dr. Shreya Dumont on 07/16/2016 at 1537 hours. DICTATED BY: SADAF CALVIN MD DATE/TIME DICTATED:07/16/161535 FRONT END DRIVER:SUNDAY DATE/TIME TRANSCRIBED:07/16/161535 CONFIDENTIAL, DO NOT COPY WITHOUT APPROPRIATE AUTHORIZATION. <Electronically signed in Other Vendor System> SIGNED BY: SADAF CALVIN MD [id number] Assessment/Plan Assessment/Plan A: HD #1 with bilateral PEs, left popliteal DVT. AVSS. Remains on IV heparin, goal PTT 60-80. Plan: Can pursue anticoagulation for 3 months- defer type (coumadin or doac to hematology). F/U with Dr. Gonzales 3 months duration. Elevate left lower extremity above level of heart Can compress left leg for edema with kerlex/carrillo wrap for comfort. Will need to be changed daily to maintain compression. Case discussed with Dr. Gonzales. Consult Acknowledgment - Thank you for your consult request.
[2016-07-17 11:55] LABS: PT 14.4 SEC (9.4-12.5)
[2016-07-17 16:00] VITALS: BP 110/60
[2016-07-17 16:32] LABS: PTT 74 SEC (25-37)
--- NOTE | 2016-07-17 17:19 | Event Note ---
Event Note Event Note: The patient converted to sinus rhythm spontaneously. An EKG done at that time showed NSR @ 75 with T - wave inversions (that have not changed from baseline). He is currently on the cardizem drip. Plan is to taper it down to 10mg/hr, the 5mg/hr, and evetually stop after an overlap with oral cardizem for an hour. He will be transitioned to oral cardizem 30 mg Q8H. Dose will be adjusted and later changed to long acting cardizem based on heart rate. Dr. Alarcon updated.
[2016-07-17 23:15] VITALS: BP 112/64
[2016-07-18 04:29] LABS: ABSOLUTE BASOPHIL COUNT 0 /CUMM (0.0-0.2); ABSOLUTE EOSINOPHIL COUNT 0.1 /CUMM (0.0-0.7); ABSOLUTE GRANULOCYTE CT 6.2 /CUMM (1.4-6.5); ABSOLUTE LYMPH COUNT 1.6 /CUMM (1.2-3.4); ABSOLUTE MONOCYTE COUNT 1.3 /CUMM (0.10-0.60); BASOPHIL % 0.3 % (0.0-2.0); EOSINOPHIL % 1.3 % (0-5); GRANULOCYTE % 67.4 % (42.2-75.2); HEMATOCRIT 41.4 % (42-52); MEAN CORPUSCULAR HGB 30.4 PG (27.0-31.0); MEAN CORPUSCULAR HGB CONC 33.8 G/DL (33.0-37.0); MEAN CORPUSCULAR VOLUME 90.1 FL (80.0-94.0); MEAN PLATELET VOLUME 7.3 FL (7.4-10.4); PLATELET COUNT 206 /CUMM (130-400); RBC DISTRIBUTION WIDTH 13.1 % (11.5-14.5); RED BLOOD CELL CT 4.59 /CUMM (4.70-6.10); WHITE BLOOD CELL COUNT 9.2 /CUMM (4.8-10.8)
[2016-07-18 04:42] LABS: PT 14.3 SEC (9.4-12.5); PTT 63 SEC (25-37)
[2016-07-18 07:59] VITALS: BP 102/64
--- NOTE | 2016-07-18 09:45 | PN- Resident CRCU ---
Subjective HPI/CRCU Issues: Patient in ICU for bilateral pulmonary emboli, rapid A. fib yesterday morning ( not now). I followed up and examined the patient today. The patient is sitting comfortably in his recliner, is not in acute distress, and does not have any complaints. He is getting oxygen via nasal cannula. He denies any fever, chills , shortness of breath, chest pain, palpitation, swelling of legs, changes in bowel or bladder habit although he has a Palacio catheter on. His vitals have been stable overnight, no overnight issues. 24 Hour Events: He had rapid atrial fibrillation yesterday morning, was started on IV Cardizem drip and finally changed to by mouth Cardizem. He had urinary retention, Palacio was placed which drained 1 L of urine. Objective Vital Signs & I&O Last 8 Hrs of Vitals and I&O: Vital Signs Date Time Temp Pulse Resp B/P Pulse O2 O2 Flow FiO2 Ox Delivery Rate 07/18 0938 80 110/60 07/18 0759 97.8 80 20 102/64 93 Nasal 2.0L Cannula 07/18 0756 93 Nasal 2.0L Cannula Exam General Appearance: well developed/nourished, no apparent distress, alert, awake , comfortable, obese Other Physical Findings: General: well nourished obese patient not in distress Head: Normocephalic, atraumatic Eyes: Pupils normal in size, regular, reacting to light and accommodation, EOM normal Ears: B/l normal on inspection Nose: Normal on inspection Throat/mouth: Moist mucosa Neck: Supple, full range of motion, no thyromegaly Heart: Regular rate, regular rhythm Lung: Normal breath sound bilaterally Added sound not heard Abd: Soft, non-tender, no distention appreciated Back: Normal range of motion Extremities: pedal edema+, Distal neurovascular intact Neurologic: Alert, oriented x3, Cranial exam grossly intact, Speech is clear and coherent Skin: Warm and dry Psychiatric: Calm, cooperative, coherant Palacio Site: urethral Date In: 07/17/16 Still Needed? Yes IV Drips IV Drips: -- Nutrition Nutrition: P.O. diet Current Medications: Current Medications Sig/Julianna Start time Last Medication Dose Route Stop Time Status Admin Acetaminophen 650 MG Q6P PRN 07/15 2330 AC PO Diltiazem HCl 30 MG Q8H 07/17 1800 AC 07/18 PO 0938 Diltiazem HCl 30 MG Q8 07/17 1730 CAN PO Diltiazem HCl 125 MG Q12H 07/17 0845 DC 07/17 Sodium Chloride 100 ML IV 07/17 1900 0843 Docusate Sodium 100 MG DAILY 07/17 2106 AC 07/18 PO 0938 Heparin Sodium 25,000 UNIT Q24H 07/15 2215 AC 07/17 (Porcine) IV 2016 Sodium Chloride 500 ML Hydromorphone HCl 0.4 MG Q4P PRN 07/15 2330 DC 07/18 IV 0433 Oxycodone/ 2 TAB Q6P PRN 07/15 2330 AC 07/18 Acetaminophen PO 0146 Senna/Docusate Sodium 1 TAB BID PRN 07/17 2115 AC PO Tramadol HCl 50 MG Q6P PRN 07/18 0930 AC 07/18 PO 0938 Warfarin Sodium 5 MG COUMADIN 1700 ONE 07/18 1700 AC PO 07/18 1701 Warfarin Sodium 5 MG COUMADIN 1700 ONE 07/17 1700 DC 07/17 PO 07/17 1701 1704 Impression/Plan Impression/Problem List Impression: 56 y/o M with PMHx of varicose veins s/p vein closure and disc herniation who presents with left popliteal DVT and acute bilateral PE with probable pulmonary infarct. He is currently being managed in the ICU for the following issues: Respiratory: Patient saturating well at 2 L/min oxygen being delivered by nasal cannula. -Plan to continue the same and see if this can be tapered off. Cardiovascular: #New onset Atrial fibrillation: Patient was on atrial fibrillation yesterday, Cardizem drip started and finally changed to Cardizem per oral. He is currently in sinus rhythm with normal range of heart rate. - Plan to continue PO Cardizem for now. - Cardio input appreciated - Per cardiology assessment, if he still remains in atrial fibrillation in 1-2 days, consider starting other antiarrhythmic drugs. Beta yaa being one. Infectious disease: No issues Hematology: #Left lower extremity DVT unprovoked pulmonary emboli: #Bilateral pulmonary embolism CT angiogram has shown bilateral pulmonary embolism, and the patient is currently on IV heparin drip. -Plan to continue IV heparin drip as a bridge to start his Coumadin. -His INR is still subtherapeutic, is receiving 5 mg of Coumadin later today -Dose Coumadin tomorrow morning according to his INR -Patient not in respiratory distress, we'll continue to watch his respiratory rate and saturation with additional oxygen being delivered by nasal cannula @2L/ min #Left popliteal DVT Patient was seen by surgical team, plastic surgery and recommended pursue metacognition for 3 months and follow-up with Dr. Gonzales in 3 months after his discharge. -Currently presenting his Coumadin with therapeutic -Continue to elevate his left lower extremity above the level of heart -Continue the compression with Kerlix or Gaston wrap daily Metabolic: No issues Alimentary: Regular diet, no issues Neurological: AAO 3, no issues Skin: No issues #DVT prophylaxis: IV heparin drip running #Diet: Regular diet #CODE STATUS: Full code Problem List: 1. Bilateral pulmonary embolism 2. Deep vein thrombosis (DVT) of popliteal vein of left lower extremity Pain Ratin Pain Location: - Pain Goal: Remain pain free Pain Plan: Tramadol, and prn Tomorrow's Labs & Rationales: INR, CBC, BEP to dose coumadin, check plt level, and kidney function Plan DVT/Prophylaxis: pharmacological Code Status: Full Code
--- NOTE | 2016-07-18 10:17 | PN- Pulmonary ---
Subjective HPI/Critical Care Issues: Patient is comfortable and has reverted to normal sinus rhythm Objective Current Medications: Current Medications Sig/Julianna Start time Last Medication Dose Route Stop Time Status Admin Acetaminophen 650 MG Q6P PRN 07/15 2330 AC PO Diltiazem HCl 30 MG Q8H 07/17 1800 AC 07/18 PO 0938 Diltiazem HCl 30 MG Q8 07/17 1730 CAN PO Diltiazem HCl 5 MG ONCE ONE 07/17 1030 DC 07/17 IV PUSH 07/17 1031 1028 Diltiazem HCl 125 MG Q12H 07/17 0845 DC 07/17 Sodium Chloride 100 ML IV 07/17 1900 0843 Docusate Sodium 100 MG DAILY 07/17 2106 AC 07/18 PO 0938 Heparin Sodium 25,000 UNIT Q24H 07/15 2215 AC 07/17 (Porcine) IV 2016 Sodium Chloride 500 ML Hydromorphone HCl 0.4 MG Q4P PRN 07/15 2330 DC 07/18 IV 0433 Oxycodone/ 2 TAB Q6P PRN 07/15 2330 AC 07/18 Acetaminophen PO 0146 Senna/Docusate Sodium 1 TAB BID PRN 07/17 2115 AC PO Tramadol HCl 50 MG Q6P PRN 07/18 0930 AC 07/18 PO 0938 Warfarin Sodium 5 MG COUMADIN 1700 ONE 07/18 1700 AC PO 07/18 1701 Warfarin Sodium 5 MG COUMADIN 1700 ONE 07/17 1700 DC 07/17 PO 07/17 1701 1704 Vital Signs & I&O Last 24 Hrs of Vitals and I&O: Vital Signs Date Time Temp Pulse Resp B/P Pulse O2 O2 Flow FiO2 Ox Delivery Rate 07/18 0938 80 110/60 07/18 0759 97.8 80 20 102/64 93 Nasal 2.0L Cannula 07/18 0756 93 Nasal 2.0L Cannula 07/18 0146 83 118/68 07/18 0000 94 Nasal 2.0L Cannula 07/17 2315 99.1 75 20 112/64 94 Nasal 2.0L Cannula 07/17 2000 94 Nasal 2.0L Cannula 07/17 1740 84 110/60 07/17 1600 93 Nasal 2.0L Cannula 07/17 1600 98.2 93 22 110/60 93 Nasal 2.0L Cannula 07/17 1200 94 Nasal 2.0L Cannula 07/17 1028 145 100/60 Intake & Output 07/18 1600 07/18 0800 07/18 0000 Intake Total 568 304 Output Total 900 850 Balance -332 -546 Intake, IV 328 304 Intake, Oral 240 Number 0 0 Bowel Movements Output, Urine 900 850 Since saturation 2 L 93% exam of his chest somewhat diminished breath sounds cardiac exam shows a regular S1 and S2 without murmurs Impression/Plan Impression/Plan Impression/Plan: 56-year-old gentleman status post vein closure subsequent DVT complicated by pulmonary embolism with probable infarct and now atrial fibrillation. Cardiac ultrasound does not show significant pulmonary hypertension. Patient remains on IV heparin and has started Coumadin Recommendations: Continue therapeutic IV heparin until INR is therapeutic. Patient can be transferred to telemetry
--- NOTE | 2016-07-18 11:39 | PN- Cardiology ---
Subjective Subjective: The patient spontaneously returned to sinus rhythm at about 4 PM yesterday afternoon. He has remained in sinus rhythm overnight. He remains asymptomatic from a cardiac standpoint. Cardiac enzymes are negative. He has been downgraded to telemetry. Cardizem has been discontinued. Objective Vital Signs and I&Os Vital Signs Date Time Temp Pulse Resp B/P Pulse O2 O2 Flow FiO2 Ox Delivery Rate 07/18 0938 80 110/60 07/18 0759 97.8 80 20 102/64 93 Nasal 2.0L Cannula 07/18 0756 93 Nasal 2.0L Cannula 07/18 0146 83 118/68 07/18 0000 94 Nasal 2.0L Cannula 07/17 2315 99.1 75 20 112/64 94 Nasal 2.0L Cannula 07/17 2000 94 Nasal 2.0L Cannula 07/17 1740 84 110/60 07/17 1600 93 Nasal 2.0L Cannula 07/17 1600 98.2 93 22 110/60 93 Nasal 2.0L Cannula 07/17 1200 94 Nasal 2.0L Cannula Intake & Output 07/18 1600 07/18 0800 07/18 0000 07/17 1600 07/17 0800 07/17 0000 Intake Total 292 792 8460 1154 1878 Output Total 895 907 7806 600 500 Balance -332 -546 -1146 381 2774 Intake, IV 328 304 025 652 4339 Intake, Oral 240 760 200 800 Number 0 0 0 0 2 Bowel Movements Output, Urine 149 733 9031 600 500 Patient 244 lb 244 lb Weight Physical Exam: HEENT exam is normal Chest is clear Heart reveals regular rhythm and no murmurs Extremities good pulses no edema Current Medications: Current Medications Sig/Julianna Start time Last Medication Dose Route Stop Time Status Admin Acetaminophen 650 MG Q6P PRN 07/15 2330 AC PO Diltiazem HCl 30 MG Q8H 07/17 1800 AC 07/18 PO 0938 Diltiazem HCl 30 MG Q8 07/17 1730 CAN PO Diltiazem HCl 125 MG Q12H 07/17 0845 DC 07/17 Sodium Chloride 100 ML IV 07/17 1900 0843 Docusate Sodium 100 MG DAILY 07/17 2106 AC 07/18 PO 0938 Heparin Sodium 25,000 UNIT Q24H 07/15 2215 AC 07/17 (Porcine) IV 2016 Sodium Chloride 500 ML Hydromorphone HCl 0.4 MG Q4P PRN 07/15 2330 DC 07/18 IV 0433 Oxycodone/ 2 TAB Q6P PRN 07/15 2330 AC 07/18 Acetaminophen PO 0146 Senna/Docusate Sodium 1 TAB BID PRN 07/17 2115 AC PO Tramadol HCl 50 MG Q6P PRN 07/18 0930 AC 07/18 PO 0938 Warfarin Sodium 5 MG COUMADIN 170 ONE 07/18 1700 AC PO 07/18 1701 Warfarin Sodium 5 MG COUMADIN 170 ONE 07/17 1700 DC 07/17 PO 07/17 170 1704 Results Last 48 Hrs of Labs/Mics: Laboratory Tests 07/18/16 0500: PT Cancelled, INR Cancelled 07/18/16 0407: Anion Gap 7, Estimated GFR > 60, Glucose 113 H, Calcium 8.1 L, Phosphorus 2.6, Magnesium 1.9, Total Bilirubin 0.7, AST 12 L, ALT 27, Albumin 3.0 L, PT 14.3 H, INR 1.37 H, APTT 63 H, CBC w Diff NO MAN DIFF REQ, RBC 4.59 L, MCV 90.1, MCH 30.4, RDW 13.1, MPV 7.3 L, Gran % 67.4, Lymphocytes % 17.3 L, Monocytes % 13.7 H, Eosinophils % 1.3, Basophils % 0.3, Absolute Granulocytes 6.2, Absolute Lymphocytes 1.6, Absolute Monocytes 1.3 H, Absolute Eosinophils 0.1, Absolute Basophils 0, PUBS MCHC 33.8 07/17/16 1553: APTT 74 H 07/17/16 1400: Troponin I < 0.01 07/17/16 1128: PT Cancelled, INR Cancelled 07/17/16 0850: PT 14.4 H, INR 1.38 H, APTT 49 H 07/17/16 0600: Anion Gap 8, Estimated GFR > 60, BUN/Creatinine Ratio 12.5, Magnesium 1.8, Troponin I < 0.01, CBC w Diff NO MAN DIFF REQ, RBC 4.96, MCV 91.6, MCH 30.7, RDW 13.0, MPV 7.4, Gran % 78.9 H, Lymphocytes % 9.1 L, Monocytes % 11.9 H, Eosinophils % 0, Basophils % 0.1, Absolute Granulocytes 10.0 H, Absolute Lymphocytes 1.2, Absolute Monocytes 1.5 H, Absolute Eosinophils 0, Absolute Basophils 0, PUBS MCHC 33.5 07/16/16 2110: APTT 66 H 07/16/16 1940: Urine Color YEL, Urine Clarity CLEAR, Urine pH 7.0, Ur Specific [place] 1.010, Urine Protein NEG, Urine Ketones NEG, Urine Nitrite NEG, Urine Bilirubin NEG, Urine Urobilinogen 0.2, Ur Leukocyte Esterase NEG, Ur Microscopic SEDIMENT EXAMINED, Urine RBC 3-5, Urine WBC 1-3 H, Urine Hemoglobin TRACE-INTACT H, Urine Glucose NEG 07/16/16 1220: APTT 51 H Assessment/Plan Assessment/Plan The patient had a few hour episode of atrial fibrillation and is now back in sinus rhythm. This may have been precipitated by urinary retention. He is hemodynamically stable at this time. I would just continue to monitor him while he is in the hospital and being transitioned to oral anticoagulants. Continue telemetry? Yes
[2016-07-18 13:35] VITALS: BP 154/72
[2016-07-18 17:01] LABS: PTT 49 SEC (25-37)
[2016-07-18 22:15] LABS: PTT 88 SEC (25-37)
[2016-07-18 23:26] VITALS: BP 122/80
[2016-07-19 08:04] LABS: ABSOLUTE BASOPHIL COUNT 0 /CUMM (0.0-0.2); ABSOLUTE EOSINOPHIL COUNT 0.1 /CUMM (0.0-0.7); ABSOLUTE GRANULOCYTE CT 4.7 /CUMM (1.4-6.5); ABSOLUTE LYMPH COUNT 1.5 /CUMM (1.2-3.4); BASOPHIL % 0.3 % (0.0-2.0); EOSINOPHIL % 1.6 % (0-5); HEMATOCRIT 41.7 % (42-52); MEAN CORPUSCULAR HGB 30.8 PG (27.0-31.0); MEAN CORPUSCULAR VOLUME 90.4 FL (80.0-94.0); MEAN PLATELET VOLUME 7.9 FL (7.4-10.4); PLATELET COUNT 232 /CUMM (130-400); RBC DISTRIBUTION WIDTH 12.9 % (11.5-14.5); RED BLOOD CELL CT 4.61 /CUMM (4.70-6.10); WHITE BLOOD CELL COUNT 7.4 /CUMM (4.8-10.8)
[2016-07-19 08:27] VITALS: BP 130/82
[2016-07-19 08:44] LABS: PT 16.5 SEC (9.4-12.5)
--- NOTE | 2016-07-19 08:51 | PN- Pulmonary ---
Subjective HPI/Critical Care Issues: pt transferred out of icu coumadin/heparin bridge feeling better comfortable 95% on 2LNC hemodynamically stable afebrile not tachycardic no n/v/d/c Objective Current Medications: Current Medications Sig/Julianna Start time Last Medication Dose Route Stop Time Status Admin Acetaminophen 650 MG Q6P PRN 07/15 2330 AC PO Diltiazem HCl 30 MG Q8H 07/17 1800 AC 07/19 PO 0154 Docusate Sodium 100 MG DAILY 07/17 2106 AC 07/18 PO 0938 Heparin Sodium 4,400 UNIT ONCE ONE 07/18 1736 DC 07/18 (Porcine) IV 07/18 173 1832 Heparin Sodium 25,000 UNIT Q24H 07/15 2215 AC 07/18 (Porcine) IV 2233 Sodium Chloride 500 ML Hydromorphone HCl 0.4 MG Q4P PRN 07/15 2330 DC 07/18 IV 0433 Oxycodone/ 2 TAB Q6P PRN 07/15 2330 AC 07/18 Acetaminophen PO 0146 Senna/Docusate Sodium 1 TAB BID PRN 07/17 2115 AC PO Tamsulosin HCl 0.4 MG DAILY 07/18 1237 AC 07/18 PO 1320 Tramadol HCl 50 MG Q4P PRN 07/18 1240 AC 07/18 PO 1731 Tramadol HCl 50 MG Q6P PRN 07/18 0930 DC 07/18 PO 0938 Warfarin Sodium 5 MG COUMADIN 1700 ONE 07/18 1700 DC 07/18 PO 07/18 1701 1727 Vital Signs & I&O Last 24 Hrs of Vitals and I&O: Vital Signs Date Time Temp Pulse Resp B/P Pulse O2 O2 Flow FiO2 Ox Delivery Rate 07/19 0827 98.5 86 20 130/82 95 Nasal 2.0L Cannula 07/19 0154 94 122/80 07/19 0000 Nasal 2.0L Cannula 07/18 2326 99.9 94 18 122/80 94 Nasal Cannula 07/18 1600 Nasal 2.0L Cannula 07/18 1335 98.3 90 20 154/72 94 Nasal 2.0L Cannula 07/18 1320 82 110/70 07/18 0938 80 110/60 Intake & Output 07/19 1600 07/19 0800 07/19 0000 Intake Total 200 100 Output Total 600 500 Balance -400 -400 Intake, Oral 200 100 Output, Urine 600 500 Exam Other Physical Findings: gen awake and alert heent ncat cvs s1, s2 lungs ctab abd soft bs+ ext without edema Results Last 24 Hrs of Lab Results: Laboratory Tests 07/19/16 0623: Anion Gap 7, Estimated GFR > 60, BUN/Creatinine Ratio 13.3, PT 16.5 H, INR 1.58 H, CBC w Diff NO MAN DIFF REQ, RBC 4.61 L, MCV 90.4, MCH 30.8, RDW 12.9, MPV 7.9, Gran % 64.0, Lymphocytes % 20.0 L, Monocytes % 14.1 H, Eosinophils % 1.6, Basophils % 0.3, Absolute Granulocytes 4.7, Absolute Lymphocytes 1.5, Absolute Monocytes 1.0 H, Absolute Eosinophils 0.1, Absolute Basophils 0, PUBS MCHC 34.0 07/18/16 2135: APTT 88 H 07/18/16 1611: APTT 49 H 07/18/16 1556: Urinalysis LIGHT H, Urine Color YEL, Urine Clarity CLEAR, Urine pH 7.0, Ur Specific [place] 1.010, Urine Protein NEG, Urine Ketones NEG, Urine Nitrite NEG, Urine Bilirubin NEG, Urine Urobilinogen 1.0, Ur Leukocyte Esterase SMALL H, Ur Microscopic SEDIMENT EXAMINED, Urine RBC 5-10 H, Urine WBC 3-5 H, Urine Hemoglobin MOD H, Urine Glucose NEG Impression/Plan Impression/Plan Impression/Plan: Impression 56-year-old man * Bilateral segmental pulmonary emboli with likely pulmonary infarct, left popliteal DVT * Family history significant for thrombosis (brother) * transient episode of a.fib during hospitalization Plan -continue IV heparin/coumadin bridge - goal INR 2-3 - overlap 24 hrs after therapeutic -hematology/cardiology appreciated -keep spo2 >92% -coumadin education/outpatient arrangement
--- NOTE | 2016-07-19 08:53 | PN- Housestaff ---
ZACKARY DUENAS 07/19/16 0841: Subjective Follow-up For: Bilateral pulmonary emboli New onset A. fib Left popliteal DVT Tele-Events Since Last Visit: Normal sinus rhythm heart rate 75-90 right bundle branch block Subjective: Seen and examined patient, offers no complaints denied palpitations, chest pain, shortness of breath and she states that he is able to breath in deeper today Review of Systems Constitutional: Denies: chills, diaphoresis, fever, malaise, weakness, unexplained weight loss. Cardiovascular: Denies: chest pain, edema, orthopena, palpitations, peripheral edema, syncope. Respiratory: Denies: cough, hemoptysis, orthopnea, short of breath, sputum production, stridor, wheezing. Gastrointestinal: Denies: see HPI, abdominal pain, bloating, constipation, diarrhea, distention, bowel incontinence, melena, nausea, bloody stool, changes in stool, vomiting, steatorrhea. Genitourinary: Denies: discharge, dysuria, frequency, hematuria, hesitation, nocturia, pain, urgency. Objective Last 24 Hrs of Vital Signs/I&O Vital Signs Date Time Temp Pulse Resp B/P Pulse O2 O2 Flow FiO2 Ox Delivery Rate 07/19 0827 98.5 86 20 130/82 95 Nasal 2.0L Cannula 07/19 0154 94 122/80 07/19 0000 Nasal 2.0L Cannula 07/18 2326 99.9 94 18 122/80 94 Nasal Cannula 07/18 1600 Nasal 2.0L Cannula 07/18 1335 98.3 90 20 154/72 94 Nasal 2.0L Cannula 07/18 1320 82 110/70 07/18 0938 80 110/60 Intake & Output 07/19 1600 07/19 0800 07/19 0000 Intake Total 200 100 Output Total 600 500 Balance -400 -400 Intake, Oral 200 100 Output, Urine 600 500 Physical Exam General Appearance: Alert, Oriented X3, Cooperative, No Acute Distress Cardiovascular: Regular Rate, Normal S1, Normal S2 Lungs: Clear to Auscultation, Normal Air Movement Abdomen: Normal Bowel Sounds, Soft, No Tenderness Extremities: No Edema Current Medications: Current Medications Sig/Julianna Start time Last Medication Dose Route Stop Time Status Admin Acetaminophen 650 MG Q6P PRN 07/15 2330 AC PO Diltiazem HCl 30 MG Q8H 07/17 1800 AC 07/19 PO 0154 Docusate Sodium 100 MG DAILY 07/17 2106 AC 07/18 PO 0938 Heparin Sodium 4,400 UNIT ONCE ONE 07/18 1736 DC 07/18 (Porcine) IV 07/18 1737 1832 Heparin Sodium 25,000 UNIT Q24H 07/15 2215 AC 07/18 (Porcine) IV 2233 Sodium Chloride 500 ML Hydromorphone HCl 0.4 MG Q4P PRN 07/15 2330 DC 07/18 IV 0433 Oxycodone/ 2 TAB Q6P PRN 07/15 2330 AC 07/18 Acetaminophen PO 0146 Senna/Docusate Sodium 1 TAB BID PRN 07/17 2115 AC PO Tamsulosin HCl 0.4 MG DAILY 07/18 1237 AC 07/18 PO 1320 Tramadol HCl 50 MG Q4P PRN 07/18 1240 AC 07/18 PO 1731 Tramadol HCl 50 MG Q6P PRN 07/18 0930 DC 07/18 PO 0938 Warfarin Sodium 5 MG COUMADIN 1700 ONE 07/18 1700 DC 07/18 PO 07/18 1701 1727 Assessment/Plan Assessment: 56-year-old male with past medical history of varicose veins, family history of clots admitted to ICU for left popliteal DVT and acute bilateral PE, CTA chest showed multiple segmental pulmonary emboli bilaterally with high clot burden a developing pulmonary infarct in posterior peripheral right lower lobe. Transfer to telemetry floor on 07/18/2016 for new onset A. fib. Now in sinus rhythm Was initially started on IV Cardizem currently on nothing by mouth Cardizem. Saturating 95% on 2 L nasal cannula. prob list: Bilateral PE New onset A. fib Left popliteal DVT BPH Plan Continue with IV heparin bridging with coumadin, INR 1.58 today will dose 5mg Coumadin today, check INR tomorrow. Continue supplemental off oxygen and attempt to wean off Cardizem 30 mg every 8 by mouth will switch to ER 120mg cardiazem Continue Flomax DVT prophylaxis with IV heparin/Coumadin Regular diet Full code Problem List: 1. Pulmonary infarct 2. Multiple pulmonary emboli 3. Bilateral pulmonary embolism 4. Deep vein thrombosis (DVT) of popliteal vein of left lower extremity 5. New onset atrial fibrillation Pain Ratin Pain Location: na Pain Goal: Pain 4 or less Pain Plan: current regimen Tomorrow's Labs & Rationales: on Iv hep: cbc/inr RADHA RODGERSMARCELO 07/19/16 1046: Attending MD Review Statement Attending Statement Attending MD Statement: examined this patient, discuss w/resident/PA/PRUNE WASHER, agreed w/resident/PA/PRUNE WASHER, reviewed EMR data (avail) Attending Assessment/Plan: 56M PMH varicose veins s/p recent stripping procedure of left leg admitted initially to ICU for bilateral acute pulmonary embolism, left leg DVT, acute hypoxemic respiratory failure, and right pulmonary infarction. Has a brother in poor health who has a history of a DVT as well. Brief episode of atrial fibrillation over the weekend but is currently in NSR. Patient reports that he feels very well today. Chest pain is resolved. Dyspnea and lightheadedness occur with exertion on room air, but he is not short of breath at rest. Still requiring 1L NC. 1. Acute bilateral pulmonary embolism 2. LLE DVT 3. Acute hypoxemic respiratory failure 4. New onset paroxysmal atrial fibrillation 5. Right pulmonary infarction 6. Family history of thrombosis 7. History of bilateral varicose veins Plan - Continue on telemetry - Continue heparin drip - Continue Coumadin - Continue Cardizem for rate control - Once therapeutic INR, will need to continue Lovenox for 48 hours, which can likely be done as an outpatient - On discharge, will require referral to vascular surgery, hematology, PCP - Anticipated discharge tomorrow. Please send CMR to pharmacy for review - No labs tomorrow aside from PT, INR, PTT
--- NOTE | 2016-07-19 10:36 | PN- Hematology ---
Subjective Subjective: Breathing is improved. Chest pain is improved. He denies any new symptoms. He has been started on warfarin. Review of Systems: Constitutional: Reports: fever. EENTM: Denies: blurred vision, double vision. Cardiovascular: Denies: chest pain. Respiratory: Denies: cough, hemoptysis, short of breath. GI: Denies: constipation, diarrhea. Genitourinary: Denies: dysuria. Skin: Denies: rash. Neurological/Psychological: Denies: anxiety, ataxia. Hematologic/Endocrine: Denies: bruising, bleeding. All Other Systems: Reviewed and Negative Objective Vital Signs and I&Os Vital Signs Date Time Temp Pulse Resp B/P Pulse O2 O2 Flow FiO2 Ox Delivery Rate 07/19 0827 98.5 86 20 130/82 95 Nasal 2.0L Cannula 07/19 0154 94 122/80 07/19 0000 Nasal 2.0L Cannula 07/18 2326 99.9 94 18 122/80 94 Nasal Cannula 07/18 1600 Nasal 2.0L Cannula 07/18 1335 98.3 90 20 154/72 94 Nasal 2.0L Cannula 07/18 1320 82 110/70 Intake & Output 07/19 1600 07/19 0800 07/19 0000 07/18 1600 07/18 0800 07/18 0000 Intake Total 200 100 902.6 568 304 Output Total 008 983 8890 900 850 Balance -400 -400 -847.4 -332 -546 Intake, IV 332.6 328 304 Intake, Oral 200 100 570 240 Number 1 0 0 Bowel Movements Output, Urine 478 707 1590 900 850 Physical Exam: General Appearance: alert, awake, comfortable Head: atraumatic, normal appearance Ears, Nose, Throat: normal pharynx, normal ENT inspection Neck: normal inspection Respiratory: normal breath sounds, chest non-tender, no respiratory distress, quiet respiration Cardiovascular: tachycardia Gastrointestinal: normal bowel sounds, soft, non-tender, no organomegaly Extremities: bilatera varicose veins Neurologic/Psych: awake, alert, oriented x 3 Lymphatic: No adenopathy Current Medications: Current Medications Sig/Julianna Start time Last Medication Dose Route Stop Time Status Admin Acetaminophen 650 MG Q6P PRN 07/15 2330 AC PO Diltiazem HCl 120 MG DAILY 07/20 1000 AC PO Diltiazem HCl 30 MG Q8H 07/17 1800 AC 07/19 PO 0154 Docusate Sodium 100 MG DAILY 07/17 2106 AC 07/18 PO 0938 Heparin Sodium 4,400 UNIT ONCE ONE 07/18 1736 DC 07/18 (Porcine) IV 07/18 173 1832 Heparin Sodium 25,000 UNIT Q24H 07/15 221 AC 07/18 (Porcine) IV 2233 Sodium Chloride 500 ML Oxycodone/ 2 TAB Q6P PRN 07/15 2330 AC 07/18 Acetaminophen PO 0146 Senna/Docusate Sodium 1 TAB BID PRN 07/17 2115 AC PO Tamsulosin HCl 0.4 MG DAILY 07/18 1237 AC 07/18 PO 1320 Tramadol HCl 50 MG Q4P PRN 07/18 1240 AC 07/18 PO 1731 Tramadol HCl 50 MG Q6P PRN 07/18 0930 DC 07/18 PO 0938 Warfarin Sodium 5 MG COUMADIN 1700 ONE 07/19 1700 AC PO 07/19 1701 Warfarin Sodium 5 MG COUMADIN 1700 ONE 07/18 1700 DC 07/18 PO 07/18 170 1727 Results Last 24 Hours of Lab Results: Laboratory Tests 07/19 07/19 07/18 0849 0623 2135 Chemistry Sodium (137 - 145 mmol/L) 133 L Potassium (3.5 - 5.1 mmol/L) 4.3 Chloride (98 - 107 mmol/L) 100 Carbon Dioxide (22 - 30 mmol/L) 26 Anion Gap (5 - 16) 7 BUN (9 - 20 mg/dL) 12 Creatinine (0.7 - 1.2 mg/dL) 0.9 Estimated GFR (>60 ml/min) > 60 BUN/Creatinine Ratio (7 - 25 %) 13.3 Coagulation PT (9.4 - 12.5 SEC) Cancelled 16.5 H INR (0.90 - 1.17) Cancelled 1.58 H APTT (25 - 37 SEC) 88 H Hematology CBC w Diff NO MAN DIFF REQ WBC (4.8 - 10.8 /CUMM) 7.4 RBC (4.70 - 6.10 /CUMM) 4.61 L Hgb (14.0 - 18.0 G/DL) 14.2 Hct (42 - 52 %) 41.7 L MCV (80.0 - 94.0 FL) 90.4 MCH (27.0 - 31.0 PG) 30.8 RDW (11.5 - 14.5 %) 12.9 Plt Count (130 - 400 /CUMM) 232 MPV (7.4 - 10.4 FL) 7.9 Gran % (42.2 - 75.2 %) 64.0 Lymphocytes % (20.5 - 51.1 %) 20.0 L Monocytes % (1.7 - 9.3 %) 14.1 H Eosinophils % (0 - 5 %) 1.6 Basophils % (0.0 - 2.0 %) 0.3 Absolute Granulocytes (1.4 - 6.5 /CUMM) 4.7 Absolute Lymphocytes (1.2 - 3.4 /CUMM) 1.5 Absolute Monocytes (0.10 - 0.60 /CUMM) 1.0 H Absolute Eosinophils (0.0 - 0.7 /CUMM) 0.1 Absolute Basophils (0.0 - 0.2 /CUMM) 0 PUBS MCHC (33.0 - 37.0 G/DL) 34.0 07/18 07/18 1611 1556 Coagulation APTT (25 - 37 SEC) 49 H Urines Urinalysis LIGHT H Urine Color (YEL,AMB,STR) YEL Urine Clarity (CLEAR) CLEAR Urine pH (5.0 - 8.0) 7.0 Ur Specific [place] (1.001 - 1.035) 1.010 Urine Protein (NEG,<30 MG/DL) NEG Urine Ketones (NEG) NEG Urine Nitrite (NEG) NEG Urine Bilirubin (NEG) NEG Urine Urobilinogen (0.1 - 1.0 EU/dl) 1.0 Ur Leukocyte Esterase (NEG) SMALL H Ur Microscopic SEDIMENT EXAMINED Urine RBC (0 - 5 /HPF) 5-10 H Urine WBC (0 - 2 /HPF) 3-5 H Urine Hemoglobin (NEG) MOD H Urine Glucose (N MG/DL) NEG Recent Imaging Studies: Venous doppler US 07/16/2016: 1. No evidence of deep vein thrombosis in the right lower extremity. 2. Partially occluding thrombus in the mid left popliteal vein. No other deep vein thrombosis in the left lower extremity. Echocardiogram 07/16/2016: Normal size left ventricle. Mild concentric left ventricular hypertrophy. Normal left ventricular wall motion. Normal left ventricular ejection fraction visually estimated at > 65%. "pseudonormal" filling pattern of the left ventricle for age (stage 2 diastolic dysfunction). Moderate right ventricular dilatation. Normal atrial size. Trace tricuspid regurgitation. Assessment/Plan Assessment/Recommendations: Mr. Tay is a 56-year-old male without significant medical history who presents with new bilateral segmental PE with likely developing pulmonary infarct. LE doppler US demonstrated a left popliteal DVT. Etiology is unclear but likely related to previous venous procedure for varicose vein on the left leg. He does have family history of DVT. He will need hypercoagulable state work up as an outpatient. He is now on heparin bridge to warfarin Recommendations: 1. Continue IV heparin bridge to warfarin 2. Hypercoagulable state work up as outpatient 3. Warfarin manage either by PCP or my office Please call [phone] with any questions or concerns. Problem List: 1. Deep vein thrombosis (DVT) of popliteal vein of left lower extremity 2. Bilateral pulmonary embolism
--- NOTE | 2016-07-19 11:10 | PN- Cardiology ---
Subjective Subjective: The patient is feeling well. His breathing is easier. He remains on Cardizem. His heart rate is in the 80s. His INR is not yet therapeutic. He remains on IV heparin. There has been no recurrence of atrial fibrillation. Objective Vital Signs and I&Os Vital Signs Date Time Temp Pulse Resp B/P Pulse O2 O2 Flow FiO2 Ox Delivery Rate 07/19 0827 98.5 86 20 130/82 95 Nasal 2.0L Cannula 07/19 0154 94 122/80 07/19 0000 Nasal 2.0L Cannula 07/18 2326 99.9 94 18 122/80 94 Nasal Cannula 07/18 1600 Nasal 2.0L Cannula 07/18 1335 98.3 90 20 154/72 94 Nasal 2.0L Cannula 07/18 1320 82 110/70 Intake & Output 07/19 1600 07/19 0800 07/19 0000 07/18 1600 07/18 0800 07/18 0000 Intake Total 200 100 902.6 568 304 Output Total 625 204 621 9287 900 850 Balance -625 -400 -400 -847.4 -332 -546 Intake, IV 332.6 328 304 Intake, Oral 200 100 570 240 Number 1 0 0 Bowel Movements Output, Urine 625 024 814 9127 900 850 Physical Exam: He is comfortable sitting in a chair HEENT exam is normal Chest is clear Heart regular rhythm no murmurs Extremities no edema Current Medications: Current Medications Sig/Julianna Start time Last Medication Dose Route Stop Time Status Admin Acetaminophen 650 MG Q6P PRN 07/15 2330 AC PO Diltiazem HCl 120 MG DAILY 07/20 1000 AC PO Diltiazem HCl 30 MG Q8H 07/17 1800 AC 07/19 PO 07/19 2359 1036 Docusate Sodium 100 MG DAILY 07/17 2106 AC 07/18 PO 0938 Heparin Sodium 4,400 UNIT ONCE ONE 07/18 1736 DC 07/18 (Porcine) IV 07/18 1737 1832 Heparin Sodium 25,000 UNIT Q24H 07/15 2215 AC 07/19 (Porcine) IV 1030 Sodium Chloride 500 ML Oxycodone/ 2 TAB Q6P PRN 07/15 2330 AC 07/18 Acetaminophen PO 0146 Patient Medication 1 UNIT 1000 07/20 1000 AC Teaching ED 07/20 1001 Senna/Docusate Sodium 1 TAB BID PRN 07/17 2115 AC PO Tamsulosin HCl 0.4 MG DAILY 07/18 1237 AC 07/18 PO 1320 Tramadol HCl 50 MG Q4P PRN 07/18 1240 AC 07/18 PO 1731 Tramadol HCl 50 MG Q6P PRN 07/18 0930 DC 07/18 PO 0938 Warfarin Sodium 5 MG COUMADIN 1700 ONE 07/19 1700 AC PO 07/19 1701 Warfarin Sodium 5 MG COUMADIN 1700 ONE 07/18 1700 DC 07/18 PO 07/18 1701 1727 Results Last 48 Hrs of Labs/Mics: Laboratory Tests 07/19/16 1040: APTT Pending 07/19/16 0849: PT Cancelled, INR Cancelled 07/19/16 0623: Anion Gap 7, Estimated GFR > 60, BUN/Creatinine Ratio 13.3, PT 16.5 H, INR 1.58 H, CBC w Diff NO MAN DIFF REQ, RBC 4.61 L, MCV 90.4, MCH 30.8, RDW 12.9, MPV 7.9, Gran % 64.0, Lymphocytes % 20.0 L, Monocytes % 14.1 H, Eosinophils % 1.6, Basophils % 0.3, Absolute Granulocytes 4.7, Absolute Lymphocytes 1.5, Absolute Monocytes 1.0 H, Absolute Eosinophils 0.1, Absolute Basophils 0, PUBS MCHC 34.0 07/18/16 2135: APTT 88 H 07/18/16 1611: APTT 49 H 07/18/16 1556: Urinalysis LIGHT H, Urine Color YEL, Urine Clarity CLEAR, Urine pH 7.0, Ur Specific [place] 1.010, Urine Protein NEG, Urine Ketones NEG, Urine Nitrite NEG, Urine Bilirubin NEG, Urine Urobilinogen 1.0, Ur Leukocyte Esterase SMALL H, Ur Microscopic SEDIMENT EXAMINED, Urine RBC 5-10 H, Urine WBC 3-5 H, Urine Hemoglobin MOD H, Urine Glucose NEG 07/18/16 0500: PT Cancelled, INR Cancelled 07/18/16 0407: Anion Gap 7, Estimated GFR > 60, Glucose 113 H, Calcium 8.1 L, Phosphorus 2.6, Magnesium 1.9, Total Bilirubin 0.7, AST 12 L, ALT 27, Albumin 3.0 L, PT 14.3 H, INR 1.37 H, APTT 63 H, CBC w Diff NO MAN DIFF REQ, RBC 4.59 L, MCV 90.1, MCH 30.4, RDW 13.1, MPV 7.3 L, Gran % 67.4, Lymphocytes % 17.3 L, Monocytes % 13.7 H, Eosinophils % 1.3, Basophils % 0.3, Absolute Granulocytes 6.2, Absolute Lymphocytes 1.6, Absolute Monocytes 1.3 H, Absolute Eosinophils 0.1, Absolute Basophils 0, PUBS MCHC 33.8 07/17/16 1553: APTT 74 H 07/17/16 1400: Troponin I < 0.01 07/17/16 1128: PT Cancelled, INR Cancelled Assessment/Plan Assessment/Plan The patient had a few hour episode of atrial fibrillation and is now back in sinus rhythm. This may have been precipitated by urinary retention. He is hemodynamically stable at this time. I would just continue to monitor him for one more day and if he remains in sinus rhythm then telemetry can be discontinued. We can keep him on Cardizem for the time being but he may not need this as an outpatient. Continue telemetry? Yes
[2016-07-19 11:39] LABS: PTT 61 SEC (25-37)
[2016-07-19] MEDS ORDERED: FLOMAX0.4 M1 PO (14:13)
[2016-07-19] MEDS ORDERED: COUMADIN5 M2 PO (14:13)
--- NOTE | 2016-07-19 14:15 | Discharge Summary ---
Visit Information Visit Dates Admission Date: 07/15/16 Discharge Date: 07/20/16 Hospital Course Course Attending Physician: MARCELO GARCIA MD Primary Care Physician: EDWIN BALLARD MD Consulting Request: 1 Consulting Specialty: Pulmonary Disease Consulting Physician: Danial Lopez MD Reason for Consult: PE Consulting Request: 2 Consulting Specialty: Hematology/Oncology Consulting Physician: Amanuel Peterson MD Reason for Consult: PE Consulting Request: 3 Consulting Specialty: Cardiology Consulting Physician: Oziel Alarcon MD Reason for Consult: New-onset atrial fibrillation in a patient with pulmonary embolism Consulting Request: 4 Consulting Specialty: Thoracic/Vascular Surgery Consulting Physician: Pardeep Gonzales MD Reason for Consult: popliteal DVT Hospital Course: 56 y/o M with PMHx of varicose veins s/p vein closure approximately one month prior to admission and disc herniation who presented with progressively worsening right-sided pleuritic chest pain x 2 days, associated with palpitations. Patient leads an active lifestyle and denied any recent immobilization or long-distance travel. Of note, he has a significant family history of thrombosis in his brother. CTA Chest was performed due to concern for PE and revealed multiple segmental pulmonary emboli involving bilateral lungs with possible pulmonary infarct. Patient was started on IV heparin drip and admitted to the ICU for close hemodynamic monitoring. Below are the issues that were addressed during current admission: #Bilateral pulmonary embolism: Hematology was consulted and patient was continued on the heparin drip according to their recommendations. ECHO was performed which showed only mild pulmonary hypertension. Once patient was stable , he was started transitioned to warfarin. His INR was therapeutic at 2.29 on day of discharge and IV heparin drip was discontinued. He was started on Lovenox 110 mg (1 mg/kg) SQ BID for continued bridging to warfarin and received 1 dose. On day of discharge, chest pain and shortness of breath had resolved and patient was weaned off oxygen. * Instructions were provided to follow up with wire turning machine operator Dr. Peterson within two weeks of discharge. * Patient will continue Lovenox for a total of 2 days (3 more doses). * Patient should continue taking warfarin for at least 6-9 months per hematology. He was discharged on 5 mg daily and instructed to have his INR checked regularly so that the dose can be adjusted. * Patient will need outpatient work-up for hypercoagulable state given significant family history of thrombosis. #Left popliteal DVT: Doppler US of bilateral lower extremities revealed partially occluding thrombus in the mid left popliteal vein. Although etiology is unclear, most likely cause is the recent vein closure procedure. Vascular surgery was consulted for management of the residual clot who felt that vascular intervention was not needed at this time. * Instructions were provided to follow up with vascular surgeon Dr. Gonzales within 3 months of discharge. #New-onset atrial fibrillation: Patient went into rapid atrial fibrillation on the second day of admission. Cardiology was consulted and patient was started on diltiazem drip according to their recommendations. EKG and troponins were negative. Patient reverted to sinus rhythm within several hours. Diltiazem drip was discontinued and patient was switched to oral diltiazem. Patient remained in normal sinus rhythm throughout the remaining hospital course. * Instructions were provided to follow up with shore worker Dr. Alarcon within one week of discharge. * Patient will continue taking diltiazem ER 120 mg daily for rate control on discharge. Per Dr. Alarcon, this medication will most likely be discontinued as outpatient once patient is stable. #Urinary retention: It was suspected that the transient episode of atrial fibrillation was triggered by urinary retention as patient was found to retain a large amount of urine in the bladder which was relieved with insertion of Palacio catheter. 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 Palacio was later discontinued. Patient was started on tamsulosin and placed on straight cath protocol. * Patient will continue taking tamsulosin 0.4 mg PO daily on discharge. Allergies: Coded Allergies: No Known Allergies (07/15/16) Disposition Summary Disposition Principal Diagnosis: Bilateral pulmonary embolism Additional Diagnosis: Left popliteal DVT New-onset atrial fibrillation Urinary retention Discharge Disposition: home or self care Discharge Instructions General Discharge Information Code Status: Full Code Patient's Diet: Regular Diet Patient's Activity: Full Activity/No Limits Follow-Up Instructions/Appts: Please follow-up with your primary care physician within one week of discharge Please follow-up with your shore worker within 1 week of discharge Please follow-up with your wire turning machine operator oncologist within 2 weeks of discharge Please follow-up with your vascular surgeon within 3 months of discharge for any possible interventions Medications at Discharge Discharge Medications: Continue taking these medications: Aspirin (Aspirin*) 81 MG TAB.CHEW 1 Tablet ORAL EVER OTHER DAY Days = 28 Comments: NOT GIVEN IN HOSPITAL Start taking the following new medications: Tamsulosin HCl (Flomax) 0.4 MG CAP.ER.24H 1 Tablet ORAL DAILY Days = 30 No Refills Comments: Last Taken: 07/18/16 Time: 1PM Warfarin Sodium (Coumadin) 5 MG TABLET 1 Milligram ORAL DAILY Days = 30 No Refills Comments: Last Taken: 07/19/16 Time: 5PM Diltiazem Cd (Diltiazem ER) 120 MG CAP.ER.DEG 1 Tablet ORAL DAILY Days = 30 No Refills Comments: Last Taken: 07/20/16 Time: 10AM Enoxaparin Sodium (Lovenox) 150 MG/ML SYRINGE 110 Milligram Inject into fatty tissue TWICE DAILY Qty = 3 No Refills Copies To: DELFINO RODGERS,PARDEEP; JOSE ALBERTO RODGERS,AMANUEL; NELLIE RODGERS,EDWIN; JANNETH RODGERS,OZIEL [place]; NIRMAL RODGERS,DANIAL
--- NOTE | 2016-07-19 14:17 | Patient Discharge Instructions ---
Discharge Instructions General Discharge Information You were seen/treated for: Bilateral pulmonary embolism New onset atrial fibrillation Deep vein thrombosis Special Instructions: Please follow-up with your primary care physician within one week of discharge Please follow-up with your bar tacker within 1 week of discharge Please follow-up with your sweat band separator oncologist within 2 weeks of discharge Please follow-up with your vascular surgeon within 3 months of discharge for any possible interventions Acute Coronary Syndrome Inclusion Criteria At DC or during hospital stay patient has or had the following: ACS DIAGNOSIS No Discharge Core Measures Meds if any: Prescribed or Continued at Discharge Meds if any: NOT Prescribed or Continued at Discharge Congestive Heart Failure Inclusion Criteria At DC or during hospital stay patient has or had the following: CHF DIAGNOSIS No Discharge Core Measures Meds if any: Prescribed or Continued at Discharge Meds if any: NOT Prescribed or Continued at Discharge Cerebrovascular accident Inclusion Criteria At DC or during hospital stay patient has or had the following: CVA/TIA Diagnosis No Discharge Core Measures Meds if any: Prescribed or Continued at Discharge Meds if any: NOT Prescribed or Continued at Discharge Venous thromboembolism Inclusion Criteria VTE Diagnosis Yes VTE Type Deep Venous Thrombosis VTE Confirmed by (Test) CT CHEST ANGIOGRAM Discharge Core Measures - Per Current guidelines, there needs to be overlap - treatment for the first 5 days of Warfarin therapy. - If discharged on Warfarin prior to 5 days of - overlap therapy, the patient will need to be - assessed for post discharge needs including - *Post discharge parental anticoagulation - *Warfarin and/or parental anticoagulation education - *Follow up date to check INR post discharge At least 5 days overlap therapy as Inpatient Yes Meds if any: Prescribed or Continued at Discharge Warfarin Yes Overlap Therapy Yes Note: Overlap Therapy is Warfarin and Anticoagulant Meds if any: NOT Prescribed or Continued at Discharge
[2016-07-19 16:31] VITALS: BP 138/82
[2016-07-19 23:26] LABS: PTT 68 SEC (25-37)
[2016-07-20 00:07] VITALS: BP 122/60
[2016-07-20 08:05] VITALS: BP 134/82
[2016-07-20 08:15] LABS: ABSOLUTE BASOPHIL COUNT 0 /CUMM (0.0-0.2); ABSOLUTE EOSINOPHIL COUNT 0.2 /CUMM (0.0-0.7); ABSOLUTE LYMPH COUNT 1.5 /CUMM (1.2-3.4); BASOPHIL % 0.6 % (0.0-2.0); EOSINOPHIL % 3.5 % (0-5); GRANULOCYTE % 59.3 % (42.2-75.2); HEMATOCRIT 44.8 % (42-52); MEAN CORPUSCULAR HGB 30.2 PG (27.0-31.0); MEAN CORPUSCULAR HGB CONC 33.7 G/DL (33.0-37.0); MEAN CORPUSCULAR VOLUME 89.8 FL (80.0-94.0); MEAN PLATELET VOLUME 7.8 FL (7.4-10.4); PLATELET COUNT 253 /CUMM (130-400); RBC DISTRIBUTION WIDTH 13.1 % (11.5-14.5); RED BLOOD CELL CT 4.99 /CUMM (4.70-6.10); WHITE BLOOD CELL COUNT 6.8 /CUMM (4.8-10.8)
--- NOTE | 2016-07-20 08:24 | PN- Housestaff ---
Subjective Follow-up For: Bilateral pulmonary emboli New onset A. fib Left popliteal DVT Tele-Events Since Last Visit: Sinus rhythm, heart rate 77-82 Subjective: Seen and examined patient offers no complaints Review of Systems Constitutional: Denies: chills, diaphoresis, fever, malaise, weakness, unexplained weight loss. Cardiovascular: Denies: chest pain, edema, orthopena, palpitations, peripheral edema, syncope. Respiratory: Denies: cough, hemoptysis, orthopnea, short of breath, sputum production, stridor, wheezing. Gastrointestinal: Denies: abdominal pain, bloating, constipation, diarrhea, distention, bowel incontinence, melena, nausea, bloody stool, changes in stool, vomiting, steatorrhea. Genitourinary: Denies: discharge, dysuria, frequency, hematuria, hesitation, nocturia, pain, urgency. Objective Last 24 Hrs of Vital Signs/I&O Vital Signs Date Time Temp Pulse Resp B/P Pulse O2 O2 Flow FiO2 Ox Delivery Rate 07/20 0805 98.2 80 20 134/82 94 Room Air 07/20 0007 98.1 81 20 122/60 94 07/19 1729 93 136/82 07/19 1631 97.9 85 18 138/82 95 Room Air 07/19 0827 98.5 86 20 130/82 95 Nasal 2.0L Cannula Intake & Output 07/20 1600 07/20 0800 07/20 0000 Intake Total 768 650 Output Total 875 700 Balance -107 -50 Intake, IV 288 Intake, Oral 480 650 Output, Urine 875 700 Patient 237 lb Weight Physical Exam General Appearance: Alert, Oriented X3, Cooperative, No Acute Distress Cardiovascular: Regular Rate, Normal S1, Normal S2 Lungs: Clear to Auscultation, Normal Air Movement Extremities: No Edema Current Medications: Current Medications Sig/Julianna Start time Last Medication Dose Route Stop Time Status Admin Acetaminophen 650 MG Q6P PRN 07/15 2330 AC PO Diltiazem HCl 120 MG DAILY 07/20 1000 AC PO Diltiazem HCl 30 MG Q8H 07/17 1800 DC 07/19 PO 07/19 2359 1729 Docusate Sodium 100 MG DAILY 07/17 2106 AC 07/18 PO 0938 Heparin Sodium 25,000 UNIT .STK-MED ONE 07/19 1027 DC (Porcine) IV 07/19 1028 Heparin Sodium 25,000 UNIT Q24H 07/15 2215 AC 07/19 (Porcine) IV 1030 Sodium Chloride 500 ML Oxycodone/ 2 TAB Q6P PRN 07/15 2330 AC 07/18 Acetaminophen PO 0146 Patient Medication 1 UNIT 1000 07/20 1000 AC Teaching ED 07/20 1001 Senna/Docusate Sodium 1 TAB BID PRN 07/17 2115 AC PO Tamsulosin HCl 0.4 MG DAILY 07/18 1237 AC 07/18 PO 1320 Tramadol HCl 50 MG Q4P PRN 07/18 1240 AC 07/18 PO 1731 Warfarin Sodium 5 MG COUMADIN 1700 ONE 07/19 1700 DC 07/19 PO 07/19 1701 1729 Last 24 Hrs of Lab/Alejo Results Last 24 Hrs of Labs/Mics: Laboratory Tests 07/20/16 0610: Sodium Pending, Potassium Pending, Chloride Pending, Carbon Dioxide Pending, Anion Gap Pending, BUN Pending, Creatinine Pending, BUN/Creatinine Ratio Pending , Magnesium Pending, PT Pending, INR Pending, CBC w Diff Pending, WBC Pending, RBC Pending, Hgb Pending, Hct Pending, MCV Pending, MCH Pending, RDW Pending, Plt Count Pending, MPV Pending, PUBS MCHC Pending 07/19/16 2215: APTT 68 H 07/19/16 1040: APTT 61 H 07/19/16 0849: PT Cancelled, INR Cancelled Assessment/Plan Assessment: 56-year-old male with past medical history of varicose veins, family history of clots admitted to ICU for left popliteal DVT and acute bilateral PE, CTA chest showed multiple segmental pulmonary emboli bilaterally with high clot burden a developing pulmonary infarct in posterior peripheral right lower lobe. Transfer to telemetry floor on 07/18/2016 for new onset A. fib. Now in sinus rhythm Was initially started on IV Cardizem currently on nothing by mouth Cardizem. Saturating 95% on 2 L nasal cannula. prob list: Bilateral PE New onset A. fib Left popliteal DVT BPH Plan on IV heparin bridging with coumadin, INR 2.29, today will dose 5 mg of coumadin and stop IV hep. Will be discharge on lovenox for one day and advised to recheck INR jul 23. Saturating on room air Cardizem 30 mg every 8 by mouth will switch to ER 120mg cardiazem, will discuss with cardiology if he needs to be discharged on Cardizem Continue Flomax DVT prophylaxis with IV heparin/Coumadin Regular diet Full code stable for discharge today. Appropriate referrals given Problem List: 1. Multiple pulmonary emboli 2. Pulmonary infarct 3. Bilateral pulmonary embolism 4. Deep vein thrombosis (DVT) of popliteal vein of left lower extremity 5. New onset atrial fibrillation Pain Ratin Pain Location: Not applicable Pain Goal: Pain 4 or less Pain Plan: Current regimen Tomorrow's Labs & Rationales: none required
[2016-07-20 08:25] LABS: PT 23.9 SEC (9.4-12.5)
--- NOTE | 2016-07-20 09:06 | PN- Hematology ---
Subjective Subjective: His breathing is better. He is now off oxygen. Review of Systems: Constitutional: Reports: fever. Cardiovascular: Denies: chest pain. Respiratory: Denies: cough, hemoptysis, short of breath. Neurological/Psychological: Denies: anxiety, ataxia. Hematologic/Endocrine: Denies: bruising, bleeding. All Other Systems: Reviewed and Negative Objective Vital Signs and I&Os Vital Signs Date Time Temp Pulse Resp B/P Pulse O2 O2 Flow FiO2 Ox Delivery Rate 07/20 0805 98.2 80 20 134/82 94 Room Air 07/20 0800 Room Air 07/20 0007 98.1 81 20 122/60 94 07/19 1729 93 136/82 07/19 1631 97.9 85 18 138/82 95 Room Air Intake & Output 07/20 1600 07/20 0800 07/20 0000 07/19 1600 07/19 0800 07/19 0000 Intake Total 768 650 200 100 Output Total 875 700 625 600 500 Balance -107 -50 -625 -400 -400 Intake, IV 288 Intake, Oral 480 650 200 100 Output, Urine 875 700 625 600 500 Patient 107.501 kg Weight Physical Exam: General Appearance: alert, awake, comfortable Head: atraumatic, normal appearance Ears, Nose, Throat: normal pharynx, normal ENT inspection Respiratory: normal breath sounds, chest non-tender, no respiratory distress, quiet respiration Cardiovascular: tachycardia Gastrointestinal: normal bowel sounds, soft, non-tender, no organomegaly Extremities: bilatera varicose veins Neurologic/Psych: awake, alert, oriented x 3 Current Medications: Current Medications Sig/Julianna Start time Last Medication Dose Route Stop Time Status Admin Acetaminophen 650 MG Q6P PRN 07/15 2330 AC PO Diltiazem HCl 120 MG DAILY 07/20 1000 AC PO Diltiazem HCl 30 MG Q8H 07/17 1800 DC 07/19 PO 07/19 2359 1729 Docusate Sodium 100 MG DAILY 07/17 2106 AC 07/18 PO 0938 Heparin Sodium 25,000 UNIT .STK-MED ONE 07/19 1027 DC (Porcine) IV 07/19 1028 Heparin Sodium 25,000 UNIT Q24H 07/15 2215 AC 07/19 (Porcine) IV 1030 Sodium Chloride 500 ML Oxycodone/ 2 TAB Q6P PRN 07/15 2330 AC 07/18 Acetaminophen PO 0146 Patient Medication 1 UNIT 1000 07/20 1000 Teaching ED 07/20 1001 Senna/Docusate Sodium 1 TAB BID PRN 07/17 2115 AC PO Tamsulosin HCl 0.4 MG DAILY 07/18 1237 AC 07/18 PO 1320 Tramadol HCl 50 MG Q4P PRN 07/18 1240 AC 07/18 PO 1731 Warfarin Sodium 5 MG COUMADIN 1700 ONE 07/19 1700 DC 07/19 PO 07/19 1701 1729 Results Last 24 Hours of Lab Results: Laboratory Tests 07/20 07/19 07/19 0610 2215 1040 Chemistry Sodium (137 - 145 mmol/L) 137 Potassium (3.5 - 5.1 mmol/L) 4.5 Chloride (98 - 107 mmol/L) 104 Carbon Dioxide (22 - 30 mmol/L) 23 Anion Gap (5 - 16) 10 BUN (9 - 20 mg/dL) 12 Creatinine (0.7 - 1.2 mg/dL) 1.0 Estimated GFR (>60 ml/min) > 60 BUN/Creatinine Ratio (7 - 25 %) 12.0 Magnesium (1.6 - 2.3 mg/dL) 1.9 Coagulation PT (9.4 - 12.5 SEC) 23.9 H INR (0.90 - 1.17) 2.29 H APTT (25 - 37 SEC) 68 H 61 H Hematology CBC w Diff NO MAN DIFF REQ WBC (4.8 - 10.8 /CUMM) 6.8 RBC (4.70 - 6.10 /CUMM) 4.99 Hgb (14.0 - 18.0 G/DL) 15.1 Hct (42 - 52 %) 44.8 MCV (80.0 - 94.0 FL) 89.8 MCH (27.0 - 31.0 PG) 30.2 RDW (11.5 - 14.5 %) 13.1 Plt Count (130 - 400 /CUMM) 253 MPV (7.4 - 10.4 FL) 7.8 Gran % (42.2 - 75.2 %) 59.3 Lymphocytes % (20.5 - 51.1 %) 22.4 Monocytes % (1.7 - 9.3 %) 14.2 H Eosinophils % (0 - 5 %) 3.5 Basophils % (0.0 - 2.0 %) 0.6 Absolute Granulocytes (1.4 - 6.5 /CUMM) 4.0 Absolute Lymphocytes (1.2 - 3.4 /CUMM) 1.5 Absolute Monocytes (0.10 - 0.60 /CUMM) 1.0 H Absolute Eosinophils (0.0 - 0.7 /CUMM) 0.2 Absolute Basophils (0.0 - 0.2 /CUMM) 0 PUBS MCHC (33.0 - 37.0 G/DL) 33.7 Assessment/Plan Assessment/Recommendations: Mr. Tay is a 56-year-old male without significant medical history who presents with new bilateral segmental PE with likely developing pulmonary infarct. LE doppler US demonstrated a left popliteal DVT. Etiology is unclear but likely related to previous venous procedure for varicose vein on the left leg. He does have family history of DVT. He will need hypercoagulable state work up as an outpatient. He is now on heparin bridge to warfarin Recommendations: 1. Continue bridge to warfarin 2. Hypercoagulable state work up as outpatient 3. Will need at least 6-9 months of therapy Please call [phone] with any questions or concerns. Problem List: 1. Deep vein thrombosis (DVT) of popliteal vein of left lower extremity 2. Pulmonary infarct
[2016-07-20] MEDS ORDERED: DILTIAZEM ER120 M2 PO (09:47)
[2016-07-20 09:48] VITALS: BP 134/82
[2016-07-20] MEDS ORDERED: LOVENOX100 MG/1 M SC ×2 (09:49→13:30)
--- NOTE | 2016-07-20 10:49 | PN- Cardiology ---
Subjective Subjective: The patient is feeling well. His INR is therapeutic and he is going to be discharged with another couple of days of Lovenox overlap. He remains in sinus rhythm. There is been no recurrence of atrial fibrillation. He remains on Cardizem long-acting 120 mg daily. Objective Vital Signs and I&Os Vital Signs Date Time Temp Pulse Resp B/P Pulse O2 O2 Flow FiO2 Ox Delivery Rate 07/20 0948 80 134/82 07/20 0805 98.2 80 20 134/82 94 Room Air 07/20 0800 Room Air 07/20 0007 98.1 81 20 122/60 94 07/19 1729 93 136/82 07/19 1631 97.9 85 18 138/82 95 Room Air Intake & Output 07/20 1600 07/20 0800 07/20 0000 07/19 1600 07/19 0800 07/19 0000 Intake Total 768 650 200 100 Output Total 875 700 625 600 500 Balance -107 -50 -625 -400 -400 Intake, IV 288 Intake, Oral 480 650 200 100 Output, Urine 875 700 625 600 500 Patient 237 lb Weight Physical Exam: He is in no distress Chest is clear Heart is regular Current Medications: Current Medications Sig/Julianna Start time Last Medication Dose Route Stop Time Status Admin Acetaminophen 650 MG Q6P PRN 07/15 2330 AC PO Diltiazem HCl 120 MG DAILY 07/20 1000 AC 07/20 PO 0947 Diltiazem HCl 30 MG Q8H 07/17 1800 DC 07/19 PO 07/19 2359 1729 Docusate Sodium 100 MG DAILY 07/17 2106 AC 07/20 PO 0947 Enoxaparin Sodium 110 MG BID 07/20 1000 AC SC Heparin Sodium 25,000 UNIT Q24H 07/15 2215 DC 07/19 (Porcine) IV 1030 Sodium Chloride 500 ML Oxycodone/ 2 TAB Q6P PRN 07/15 2330 AC 07/18 Acetaminophen PO 0146 Patient Medication 1 UNIT 1000 07/20 1000 DC 07/20 Teaching ED 07/20 1001 0929 Senna/Docusate Sodium 1 TAB BID PRN 07/17 2115 AC PO Tamsulosin HCl 0.4 MG DAILY 07/18 1237 AC 07/18 PO 1320 Tramadol HCl 50 MG Q4P PRN 07/18 1240 AC 07/18 PO 1731 Warfarin Sodium 5 MG COUMADIN 1700 ONE 07/19 1700 DC 07/19 PO 07/19 1701 1729 Results Last 48 Hrs of Labs/Mics: Laboratory Tests 07/20/16 0610: Anion Gap 10, Estimated GFR > 60, BUN/Creatinine Ratio 12.0, Magnesium 1.9, PT 23.9 H, INR 2.29 H, CBC w Diff NO MAN DIFF REQ, RBC 4.99, MCV 89.8, MCH 30.2, RDW 13.1, MPV 7.8, Gran % 59.3, Lymphocytes % 22.4, Monocytes % 14.2 H, Eosinophils % 3.5, Basophils % 0.6, Absolute Granulocytes 4.0, Absolute Lymphocytes 1.5, Absolute Monocytes 1.0 H, Absolute Eosinophils 0.2, Absolute Basophils 0, PUBS MCHC 33.7 07/19/16 2215: APTT 68 H 07/19/16 1040: APTT 61 H 07/19/16 0849: PT Cancelled, INR Cancelled 07/19/16 0623: Anion Gap 7, Estimated GFR > 60, BUN/Creatinine Ratio 13.3, PT 16.5 H, INR 1.58 H, CBC w Diff NO MAN DIFF REQ, RBC 4.61 L, MCV 90.4, MCH 30.8, RDW 12.9, MPV 7.9, Gran % 64.0, Lymphocytes % 20.0 L, Monocytes % 14.1 H, Eosinophils % 1.6, Basophils % 0.3, Absolute Granulocytes 4.7, Absolute Lymphocytes 1.5, Absolute Monocytes 1.0 H, Absolute Eosinophils 0.1, Absolute Basophils 0, PUBS MCHC 34.0 07/18/16 2135: APTT 88 H 07/18/16 1611: APTT 49 H 07/18/16 1556: Urinalysis LIGHT H, Urine Color YEL, Urine Clarity CLEAR, Urine pH 7.0, Ur Specific [place] 1.010, Urine Protein NEG, Urine Ketones NEG, Urine Nitrite NEG, Urine Bilirubin NEG, Urine Urobilinogen 1.0, Ur Leukocyte Esterase SMALL H, Ur Microscopic SEDIMENT EXAMINED, Urine RBC 5-10 H, Urine WBC 3-5 H, Urine Hemoglobin MOD H, Urine Glucose NEG Assessment/Plan Assessment/Plan The patient had a few hour episode of atrial fibrillation and is now back in sinus rhythm. This may have been precipitated by urinary retention. He is hemodynamically stable at this time. He remains in sinus rhythm on the monitor. He is to be discharged today. I would send him home on Cardizem. I will see him in the office and then most likely if he is stable we can probably discontinue the Cardizem at some point as an outpatient. Continue telemetry? No
--- NOTE | 2016-07-20 13:25 | PN- Pulmonary ---
Subjective HPI/Critical Care Issues: Patient seen and examined. No chest pain, at respiratory baseline. No nausea, vomiting, diarrhea or constipation. Afebrile and hemodynamically stable. Objective Current Medications: Current Medications Sig/Julianna Start time Last Medication Dose Route Stop Time Status Admin Acetaminophen 650 MG Q6P PRN 07/15 2330 AC PO Diltiazem HCl 120 MG DAILY 07/20 1000 AC 07/20 PO 0947 Diltiazem HCl 30 MG Q8H 07/17 1800 DC 07/19 PO 07/19 2359 1729 Docusate Sodium 100 MG DAILY 07/17 2106 AC 07/20 PO 0947 Enoxaparin Sodium 110 MG BID 07/20 1000 AC 07/20 SC 1118 Heparin Sodium 25,000 UNIT Q24H 07/15 2215 DC 07/19 (Porcine) IV 1030 Sodium Chloride 500 ML Oxycodone/ 2 TAB Q6P PRN 07/15 2330 AC 07/18 Acetaminophen PO 0146 Patient Medication 1 UNIT 1000 07/20 1000 DC 07/20 Teaching ED 07/20 1001 0929 Senna/Docusate Sodium 1 TAB BID PRN 07/17 2115 AC PO Tamsulosin HCl 0.4 MG DAILY 07/18 1237 AC 07/18 PO 1320 Tramadol HCl 50 MG Q4P PRN 07/18 1240 AC 07/18 PO 1731 Warfarin Sodium 5 MG DAILY 07/20 1115 AC 07/20 PO 1118 Warfarin Sodium 5 MG COUMADIN 1700 ONE 07/19 1700 DC 07/19 PO 07/19 1701 1729 Vital Signs & I&O Last 24 Hrs of Vitals and I&O: Vital Signs Date Time Temp Pulse Resp B/P Pulse O2 O2 Flow FiO2 Ox Delivery Rate 07/20 0948 80 134/82 07/20 0805 98.2 80 20 134/82 94 Room Air 07/20 0800 Room Air 07/20 0007 98.1 81 20 122/60 94 07/19 1729 93 136/82 07/19 1631 97.9 85 18 138/82 95 Room Air Intake & Output 07/20 1600 07/20 0800 07/20 0000 Intake Total 611.1 768 650 Output Total 875 700 Balance 611.1 -107 -50 Intake, IV 131.1 288 Intake, Oral 480 480 650 Output, Urine 875 700 Patient 237 lb Weight Exam Other Physical Findings: gen awake and alert heent ncat cvs s1, s2 lungs ctab abd soft bs+ ext without edema Results Last 24 Hrs of Lab Results: Laboratory Tests 07/20/16 1200: APTT Cancelled 07/20/16 0610: Anion Gap 10, Estimated GFR > 60, BUN/Creatinine Ratio 12.0, Magnesium 1.9, PT 23.9 H, INR 2.29 H, CBC w Diff NO MAN DIFF REQ, RBC 4.99, MCV 89.8, MCH 30.2, RDW 13.1, MPV 7.8, Gran % 59.3, Lymphocytes % 22.4, Monocytes % 14.2 H, Eosinophils % 3.5, Basophils % 0.6, Absolute Granulocytes 4.0, Absolute Lymphocytes 1.5, Absolute Monocytes 1.0 H, Absolute Eosinophils 0.2, Absolute Basophils 0, PUBS MCHC 33.7 07/19/16 2215: APTT 68 H Impression/Plan Impression/Plan Impression/Plan: Impression 56-year-old man * Bilateral segmental pulmonary emboli with likely pulmonary infarct, left popliteal DVT * Family history significant for thrombosis (brother) * transient episode of a.fib during hospitalization Plan -continue bridge coumadin with parenteral a/c for at least 5 days -hematology/cardiology appreciated -keep spo2 >92% -coumadin education/outpatient arrangement
[2016-07-20] MEDS ORDERED: LOVENOX150 MG/1 M SC (13:31)
== END 2016-07-20 13:33 | DRG 176 ==
LOC: ENRESERVDT → ENRESERVTM → ERH 19:02 → ENPENDDIS 23:21 → CRI 23:21 → 1NO 23:21 → ERHI 23:21 → CRI 07-16 01:06 → 1NO 07-18 13:24
PROVIDERS: Dermatology; Emergency Medicine; Internal Medicine; Internal Medicine Critical Care Medicine; Internal Medicine Hematology & Oncology; Internal Medicine Pulmonary Disease; Physician Assistant Medical; Student in an Organized Health Care Education/Training Program; ADMIT Internal Medicine
DX: I26.99 Other pulmonary embolism without acute cor pulmonale (principal); I48.91 Unspecified atrial fibrillation; I82.432 Acute embolism and thrombosis of left popliteal vein; R33.9 Retention of urine, unspecified
CPT/HCPCS: 1NP; CCU; ERO; 36415; 81001; 82436; 85306; 87040; 87086; 87804; 87804-59; 93005; 93010; 93306; 93970; 96374; 96375; 99291; J1170; J1644; J1650

== ENCOUNTER 2016-07-22 18:40 | Emergency (ER) | payer OTHER ==
[~2016-07-22] VITALS: Ht 185.4 cm; Wt 105.7 kg
[~2016-07-22 18:40] MED LIST: ASPIRIN81 M4 PO; COUMADIN5 M2 PO; DILTIAZEM ER120 M2 PO; FLOMAX0.4 M1 PO; LOVENOX100 MG/1 M SC; LOVENOX150 MG/1 M SC
[2016-07-22 21:34] LABS: PT 17.7 SEC (9.4-12.5)
[2016-07-22 22:10] LABS: ABSOLUTE BASOPHIL COUNT 0 /CUMM (0.0-0.2); ABSOLUTE EOSINOPHIL COUNT 0.4 /CUMM (0.0-0.7); ABSOLUTE GRANULOCYTE CT 3.2 /CUMM (1.4-6.5); ABSOLUTE LYMPH COUNT 1.4 /CUMM (1.2-3.4); ABSOLUTE MONOCYTE COUNT 0.9 /CUMM (0.10-0.60); WHITE BLOOD CELL COUNT 5.9 /CUMM (4.8-10.8)
[2016-07-22 22:12] LABS: BASOPHIL % 0.5 % (0.0-2.0); EOSINOPHIL % 6.2 % (0-5); GRANULOCYTE % 54.3 % (42.2-75.2); HEMATOCRIT 50.1 % (42-52); MEAN CORPUSCULAR HGB CONC 33.1 G/DL (33.0-37.0); MEAN CORPUSCULAR VOLUME 90.7 FL (80.0-94.0); MEAN PLATELET VOLUME 6.3 FL (7.4-10.4); PLATELET COUNT 350 /CUMM (130-400); RBC DISTRIBUTION WIDTH 12.9 % (11.5-14.5); RED BLOOD CELL CT 5.52 /CUMM (4.70-6.10)
[2016-07-22] MEDS ORDERED: BENADRYL ALLERG25 M2 PO (22:36)
[2016-07-22] MEDS ORDERED: ELIQUIS5 M1 PO (22:36)
[2016-07-22] MEDS ORDERED: PEPCID20 M1 PO (22:36)
--- NOTE | 2016-07-22 22:37 | ED GENERAL ADULT ---
History of Present Illness General Chief Complaint: General Adult Stated Complaint: RASH ON BACK, INR LEVEL NOT THERAPUETIC Source: patient, family, old records Exam Limitations: no limitations Vital Signs & Intake/Output Vital Signs & Intake/Output Vital Signs Date Time Temp Pulse Resp B/P Pulse O2 O2 Flow FiO2 Ox Delivery Rate 07/22 2251 98.2 89 18 128/75 96 Room Air 07/22 2147 Room Air 07/22 1919 98.0 86 18 148/85 97 Room Air ED Intake and Output 07/23 0000 07/22 1200 Intake Total Output Total Balance Patient 233 lb Weight Allergies Coded Allergies: No Known Allergies (07/15/16) Reconcile Medications Apixaban (Eliquis) 5 MG TABLET 0 PO BID PE 2 tabs twice daily for 1 week then 1 tab twice daily Aspirin (Aspirin*) 81 MG TAB.CHEW 1 TAB PO EVER OTHER DAY HEART (Reported) Diltiazem Cd (Diltiazem ER) 120 MG CAP.ER.DEG 1 TAB PO DAILY HEART RATE Diphenhydramine HCl (Benadryl Allergy) 25 MG TABLET 1-2 TAB PO Q6P PRN allergy Enoxaparin Sodium (Lovenox) 150 MG/ML SYRINGE 110 MG SC BID PE Famotidine (Pepcid) 20 MG TABLET 1 TAB PO BID allergy Warfarin Sodium (Coumadin) 5 MG TABLET 1 MG PO DAILY ATRIAL FIBRILLATION Core Measure Meds Pre-Hospital coumadin Triage Note: PT SENT TO ER BY FOR UNTERAPUETIC INR LEVEL AND LOW COUMADIN DOSE. PT WAS AT [facility] FOR PE, DC ON 07/20, PLACED ON COUMADIN 5MG, BUT PT STATES HE TAKES ONLY 1MG. ALSO PT HAS HIVES TO BACK AND BILAT LE WHICH IS ?ALLERGIC REACTION TO LOVENOX. VSS. PT DENIES CHEST PAIN, DENIES SOB AT HIS TIME. Triage Nurses Notes Reviewed? yes Onset: Morning Duration: hour(s):, constant, continues in ED Timing: recent history Injury Environment: home Severity: moderate Modifying Factors: Improves With: medication. HPI: Patient was discharged from the hospital 2 days prior to admission for PE DVT new-onset A. fib started on Coumadin and Lovenox. The morning prior to admission he awoke with generalized maculopapular rash. His Coumadin prescription was incorrect. Denies fever chills nausea vomiting diarrhea abdominal pain chest pain shortness breath headache dysuria bleeding. Past History Travel History Traveled to [place] past 21 day No Medical History Any Pertinent Medical History? 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 FATHER (mULTIPLE HEART ATTACK, FIRST ONE AROUND 40-YEAR-OLD). . MOTHER (cOLON CANCER, BREAST CANCER). . Hx Contributory? No Review of Systems Review of Systems Constitutional: Reports: no symptoms. EENTM: Reports: no symptoms. Respiratory: Reports: see HPI, cough. Cardiovascular: Reports: no symptoms. GI: Reports: no symptoms. Genitourinary: Reports: no symptoms. Musculoskeletal: Reports: no symptoms. Skin: Reports: see HPI, rash. Neurological/Psychological: Reports: no symptoms. Hematologic/Endocrine: Reports: no symptoms. Immunologic/Allergic: Reports: no symptoms. All Other Systems: Reviewed and Negative Physical Exam Physical Exam General Appearance: well developed/nourished, alert, awake, anxious, mild distress Head: atraumatic, normal appearance Eyes: Bilateral: normal appearance, PERRL, EOMI. Ears, Nose, Throat: normal pharynx, normal ENT inspection Neck: normal inspection, supple, full range of motion, no midline tenderness Respiratory: normal breath sounds, chest non-tender, no respiratory distress, quiet respiration, lungs clear Cardiovascular: regular rate/rhythm, normal peripheral pulses, norml femoral pulses equa Peripheral Pulses: 4+ carotid (R), 4+ carotid (L) Gastrointestinal: normal bowel sounds, soft, non-tender, no organomegaly Back: normal inspection, normal range of motion Extremities: normal inspection, normal capillary refill, normal range of motion, no edema Neurologic/Psych: no motor/sensory deficits, awake, alert, oriented x 3, normal gait, normal mood/affect, 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 Skin: rash, urticarial plaques Lymphatic: no anterior cervical marcos Core Measures ACS in differential dx? No CVA/TIA Diagnosis: No Severe Sepsis Present: No Septic Shock Present: No Progress Differential Diagnoses I considered the following diagnoses in my evaluation of the patient: Medication reaction Plan of Care: Orders Procedure Date/time Status PROTHROMBIN TIME 07/22 2050 Complete COMPREHENSIVE METABOLIC PANEL 07/22 2050 Complete CBC WITHOUT DIFFERENTIAL 07/22 2050 Complete Laboratory Tests 07/22/162153: CBC w Diff NO MAN DIFF REQ, RBC 5.52, MCV 90.7, MCH 30.0, RDW 12.9, MPV 6.3 L, Gran % 54.3, Lymphocytes % 24.4, Monocytes % 14.6 H, Eosinophils % 6.2 H, Basophils % 0.5, Absolute Granulocytes 3.2, Absolute Lymphocytes 1.4, Absolute Monocytes 0.9 H, Absolute Eosinophils 0.4, Absolute Basophils 0, PUBS MCHC 33.1 07/22/162114: Anion Gap 11, Estimated GFR > 60, BUN/Creatinine Ratio 18.0, Glucose 93, Calcium 9.4, Total Bilirubin 0.6, AST 34, ALT 52, Alkaline Phosphatase 66, Total Protein 7.5, Albumin 4.0, Globulin 3.5, Albumin/Globulin Ratio 1.1, PT 17.7 H, INR 1.69 H Initial ED EKG: none Departure Departure Time of Disposition: 2231 Disposition: HOME OR SELF CARE Condition: Stable Clinical Impression Primary Impression: Medication side effects Secondary Impressions: Urticaria Referrals: EDWIN BALLARD MD (PCP/Family) Additional Instructions: Stop coumadin Departure Forms: Customer Survey General Discharge Information Prescriptions: Current Visit Scripts Apixaban (Eliquis) 0 PO BID #60 TAB 2 tabs twice daily for 1 week then 1 tab twice daily Diphenhydramine HCl (Benadryl Allergy) 1-2 TAB PO Q6P PRN allergy #30 TAB Ref 1 Famotidine (Pepcid) 1 TAB PO BID #10 TAB Critical Care Note Critical Care Note Critical Care Time: non-applicable
[2016-07-22 22:51] VITALS: BP 128/75
== END 2016-07-22 22:54 ==
LOC: ERH 18:40
PROVIDERS: Emergency Medicine
DX: T45.515A Adverse effect of anticoagulants, initial encounter (principal); L50.0 Allergic urticaria; Z79.01 Long term (current) use of anticoagulants